=== PATIENT | female | born 1950 | race Caucasian/White ===

== ENCOUNTER 2017-01-02 01:24 | Inpatient (IN) | payer MEDICARE, OTHER ==
[2017-01-01 22:30] VITALS: BP_SYST 123; BP_SYST 124; BP_DIAS 70; BP_DIAS 77
[~2017-01-02] VITALS: Ht 175.3 cm; Wt 72.6 kg
--- NOTE | 2017-01-02 01:40 | NUR ---
ADMITTED A 66-YEAR OLD FEMALE FROM [facility] TRANSPORTED VIA GURNEY BY AMBULANCE. PATIENT IS ALERT, ORIENTED X2. PATIENT ADMITTED ON A 5150 HOLD FOR A DANGER TO SELF. PER HOLD PATIENT CALL FROM CLIENT REPORTING SHE HAD CUT HERSELF IN THE CHEST. "I WAS TRYING TO CUT MY HEART" WENT TO SEE CLIENT AT HER HOME. POLICE WAS AT HOME WITH HER. SHE SHOWED THEM A CUT ON HER CHEST. REPORTED PATIENT TAKING 4 NAPROXYN AND 4 TRAZADONE. SHE STATES "I WAS TAKING SUICIDE SERIOUSLY AND I WAS THINKING OF GETTING A GUN." PATIENT HAS ADMITTING DIAGNOSIS OF PSYCHOSIS, DEPRESSION, H/O SUICIDE ATTEMPT AND BIPOLAR DISORDER. PATIENT DENIES SI/HI AT THIS TIME. NO C/O PAIN OR DISCOMFORT NOTED. SKIN AND BODY ASSESSMENT DONE. NO APPARENT DISTRESS NOTED. PATIENT IS UNDER THE CARE OF DR. MOMIN/JAEL. PATIENT ORIENTED TO ROOM, FLOOR AND STAFF. ALL INVENTORIES AND CHECKED FOR CONTRABAND. PATIENT EDUCATED ON THE USE OF CALL SOTELO. WILL IMPLEMENT SAFETY PRECAUTION ALL THE TIME. WILL CONTINUE TO MONITOR PATIENT Q15 MINS FOR SAFETY.
[2017-01-02 01:45] VITALS: BP 123/77
--- NOTE | 2017-01-02 01:45 | NUR ---
CALLED DR. ELDER REGARDING MEDICATION RECONCILIATION ORDERS AWAITING CALL BACK.
[2017-01-02] MEDS ORDERED: MAGNESIUM HYDROXIDE 30 ML UDC PO PRN (02:00)
[2017-01-02] MEDS ORDERED: MAG HYDROX/AL HYDROX/SIMETH 30 ML UDC PO PRN (02:00)
[2017-01-02 04:15] VITALS: BP 123/77
--- NOTE | 2017-01-02 04:30 | NUR ---
FOLLOWED UP CALL MADE TO DR. ELDER AWAITING RESPONSE FROM
[2017-01-02] MEDS ORDERED: BUSP5TAB3 PO (05:58)
[2017-01-02] MEDS ORDERED: RISP3TAB14 PO (05:58)
[2017-01-02] MEDS ORDERED: POTA99TA14 PO (05:58)
[2017-01-02] MEDS ORDERED: LEVO75TA7 PO (05:58)
[2017-01-02] MEDS ORDERED: OMEP20CA10 PO (05:58)
[2017-01-02] MEDS ORDERED: SENN8.6T6 PO (05:58)
--- NOTE | 2017-01-02 06:18 | NUR ---
DR. ELDER CALLED BACK AND INSTRUCTED THAT MORNING DOCTOR WILL DO THE MEDICATION RECONCILIATION ORDERS. WILL ENDORSED TO THE NEXT SHIFT ACCORDINGLY.
[2017-01-02 08:09] VITALS: BP 120/66
[2017-01-02] MEDS: LEVOTHYROXINE SODIUM 75 MCG TABLET PO SCH (10:04)
[2017-01-02] MEDS: PANTOPRAZOLE 40 MG TABLET.DR PO SCH (10:04)
--- NOTE | 2017-01-02 11:54 | NUR ---
Initial Discharge Note Patient states that she lives alone in a condo at [address] [place] [address] and wishes to return upon her discharge from the hospital. Patient expressed no interest in alternative placement. SW attempted to contact pt's mother, Farzaneh [phone], and left a voicemail with detailed contact information. SW will help in forming a safe and proper discharge.
[2017-01-02 16:19] VITALS: BP 110/62
[2017-01-02] MEDS: ESCITALOPRAM OXALATE (10 MG) 10 MG TABLET PO SCH (16:52)
[2017-01-02 20:00] VITALS: BP 144/59
[2017-01-02] MEDS: TEMAZEPAM 7.5 MG CAPSULE PO PRN (21:47)
[2017-01-02] MEDS: ARIPIPRAZOLE 2 MG TABLET PO SCH (21:47)
--- NOTE | 2017-01-02 21:47 | NUR ---
GPS RN NOTES PT C/O INABILITY TO SLEEP, REQUESTING FOR SLEEPING PILL , RESTORIL GIVEN ORDERED. BP : 144/59, HR : 60, 02 SAT : 96 %. WILL CONT TO MONITOR.
[2017-01-03 07:40] LABS: BASOPHILS % (AUTO) 0.4 % (0.0-2.0); EOSINOPHILS # (AUTO) 0.2 /CMM (0.0-0.7); EOSINOPHILS % (AUTO) 4.6 % (0.0-6.0); HEMATOCRIT 39 % (33-45); HEMOGLOBIN 12.9 g/dL (11.5-14.8); LYMPHOCYTES # (AUTO) 1.8 /CMM (0.8-4.8); LYMPHOCYTES % (AUTO) 41.3 % (20.0-44.0); MEAN CORPUSCULAR HEMOGLOBIN 32 PG (26.0-33.0); MEAN CORPUSCULAR HGB CONC 34 g/dl (31.0-36.0); MEAN CORPUSCULAR VOLUME 95 fL (82-100); MONOCYTES # (AUTO) 0.2 /CMM (0.1-1.30); MONOCYTES % (AUTO) 4.9 % (2.0-12.0); NEUTROPHILS # (AUTO) 2.1 /CMM (1.8-8.9); NEUTROPHILS % (AUTO) 48.8 % (43.0-81.0); PLATELET COUNT (AUTO) 87 /CMM (150-450); RDW COEFFICIENT OF VARIATION 14.9 (11.5-15.0); RED BLOOD CELL COUNT(AUTO) 4.05 MIL/uL (4.0-5.2); WHITE BLOOD COUNT (AUTO) 4.3 K/uL (4.3-11.0)
[2017-01-03 08:00] VITALS: BP 127/54
[2017-01-03 08:00] LABS: BILIRUBIN,TOTAL 0.7 mg/dL (0.2-1.0); CALCIUM, SERUM 8.8 mg/dL (8.5-10.1); CREATININE 0.8 mg/dL (0.6-1.3); POTASSIUM 4.1 mmol/L (3.5-5.1); TOTAL PROTEIN, SERUM 6.1 g/dL (6.4-8.2)
[2017-01-03 08:08] LABS: THYROID STIMULATING HORMONE 1.082 uIU/mL (0.358-3.74)
[2017-01-03] MEDS: ESCITALOPRAM OXALATE (10 MG) 10 MG TABLET PO SCH (09:35)
[2017-01-03] MEDS: LEVOTHYROXINE SODIUM 75 MCG TABLET PO SCH (09:36)
[2017-01-03] MEDS: SENNOSIDES 8.6 MG TABLET PO SCH (09:36)
[2017-01-03] MEDS: PANTOPRAZOLE 40 MG TABLET.DR PO SCH (09:36)
[2017-01-03 09:53] LABS: EOSINOPHILS % (MANUAL) 2 % (0-4); LYMPHOCYTES % (MANUAL) 37 % (16-48); MONOCYTES % (MANUAL) 3 % (0-11.0); NEUTROPHILS % (MANUAL) 58 (42-76)
--- NOTE | 2017-01-03 11:22 | NUR ---
PT. GIVEN KLONOPIN FOR ANXIETY.
[2017-01-03] MEDS: clonazePAM 0.5 MG TABLET PO PRN (11:23)
[2017-01-03 16:00] VITALS: BP 130/91
--- NOTE | 2017-01-03 18:06 | NUR ---
NO CHANGE IN STATUS.
[2017-01-03 20:00] VITALS: BP 140/93
[2017-01-03] MEDS: TEMAZEPAM 7.5 MG CAPSULE PO PRN (21:24)
[2017-01-03] MEDS: ARIPIPRAZOLE 2 MG TABLET PO SCH (21:24)
[2017-01-03 22:00] VITALS: BP 128/76
--- NOTE | 2017-01-04 06:42 | NUR ---
RN GPS NOTES DENIES SI HI , NO ACUTE DISTRESS NOTED, NO SIGNIFICANT CHANGES OF STATUS ,WILL ENDORSE TO NEXT SHIFT FOR CONTINUITY OF CARE .
--- NOTE | 2017-01-04 07:30 | NUR ---
RN NOTES PT IN BED, NOT IN ANY DISTRESS, APPEARS CALM. WILL CONT TO MONITOR.
[2017-01-04 08:25] VITALS: BP 155/78
[2017-01-04] MEDS: SENNOSIDES 8.6 MG TABLET PO SCH (09:10)
[2017-01-04] MEDS: ESCITALOPRAM OXALATE (10 MG) 10 MG TABLET PO SCH (09:10)
[2017-01-04] MEDS: LEVOTHYROXINE SODIUM 75 MCG TABLET PO SCH (09:10)
[2017-01-04] MEDS: PANTOPRAZOLE 40 MG TABLET.DR PO SCH (09:10)
[2017-01-04 15:33] VITALS: BP 140/76
[2017-01-04 16:00] VITALS: BP 140/76
[2017-01-04] MEDS: clonazePAM 0.5 MG TABLET PO PRN (20:32)
[2017-01-04 20:47] VITALS: BP 142/71
[2017-01-04] MEDS: ARIPIPRAZOLE 2 MG TABLET PO SCH (21:32)
[2017-01-04] MEDS: TEMAZEPAM 7.5 MG CAPSULE PO PRN (21:32)
[2017-01-05 08:00] VITALS: BP 139/83
[2017-01-05] MEDS: LEVOTHYROXINE SODIUM 75 MCG TABLET PO SCH (11:41)
[2017-01-05] MEDS: SENNOSIDES 8.6 MG TABLET PO SCH (11:41)
[2017-01-05] MEDS: ESCITALOPRAM OXALATE (10 MG) 10 MG TABLET PO SCH (11:41)
[2017-01-05] MEDS: PANTOPRAZOLE 40 MG TABLET.DR PO SCH (11:42)
--- NOTE | 2017-01-05 16:22 | NUR ---
very needy and hyper verbal no s.i. voiced to this staff continue monitoring for safety.
[2017-01-05 16:25] VITALS: BP 131/77
[2017-01-05 20:00] VITALS: BP 168/87
[2017-01-05 20:20] VITALS: BP 168/87
[2017-01-05] MEDS: clonazePAM 0.5 MG TABLET PO PRN (20:50)
--- NOTE | 2017-01-05 20:50 | NUR ---
RN NOTES: PATIENT STATED THAT SHE FEELS ANXIOUS AND KEPT ASKING ABOUT HER MEDICAITONS, SAYNG THAT SHE WANTS HER KLONOPIN, AND THEN A RESTORIL AFTERWARDS. EXPLAINED SCHEDULE OF MEDICATIONS. BP ELEVATED AT 168/87. ADMINISTERED KLONOPIN 0.5 MG PO. WILL CONT TO MONITOR.
[2017-01-05] MEDS: ARIPIPRAZOLE 2 MG TABLET PO SCH (21:45)
[2017-01-05] MEDS: TEMAZEPAM 7.5 MG CAPSULE PO PRN (21:48)
--- NOTE | 2017-01-05 21:50 | NUR ---
RN NOTES: ADMINISTERED RESTORIL 7.5 MG PO FOR SLEEPLESSNESS.
[2017-01-05 22:30] VITALS: BP 135/78
--- NOTE | 2017-01-05 22:30 | NUR ---
RN NOTES: BP DECREASED TO 135/78, HR: 58.
[2017-01-06] MEDS: ACETAMINOPHEN 325 MG TABLET PO PRN (03:56)
--- NOTE | 2017-01-06 04:04 | NUR ---
RN NOTES: TYLENOL 650 MG PO GIVEN FOR SHOULDER AND NECK PAIN. PER PATIENT, "SARKIS CADET" USED HIS SUPERNATURAL MINA TO CAUSE HER THIS PAIN. WHEN ASKED WHO SARKIS CADET IS, SHE SAID THAT HE IS THE ONE WHO CAN MAKE HER INVISIBLE. REORIENTED PATIENT. WILL CONT TO MONITOR.
[2017-01-06] MEDS: clonazePAM 0.5 MG TABLET PO PRN ×2 (04:36→19:49)
--- NOTE | 2017-01-06 04:37 | NUR ---
RN NOTES: ADMINISTERED KLONOPIN 0.5 MG PO FOR ANXIETY. PATIENT ALSO REQUESTED FOR ANOTHER BP CHECK: 132/73.V
[2017-01-06 08:00] VITALS: BP 128/76
[2017-01-06] MEDS: LEVOTHYROXINE SODIUM 75 MCG TABLET PO SCH (08:19)
[2017-01-06] MEDS: ESCITALOPRAM OXALATE (10 MG) 10 MG TABLET PO SCH (08:19)
[2017-01-06] MEDS: SENNOSIDES 8.6 MG TABLET PO SCH (08:19)
[2017-01-06] MEDS: PANTOPRAZOLE 40 MG TABLET.DR PO SCH (08:19)
[2017-01-06 15:44] VITALS: BP 126/83
[2017-01-06 20:04] VITALS: BP 143/82
[2017-01-06] MEDS: TEMAZEPAM 7.5 MG CAPSULE PO PRN (20:51)
[2017-01-06] MEDS: ARIPIPRAZOLE 2 MG TABLET PO SCH (21:12)
[2017-01-07] MEDS: clonazePAM 0.5 MG TABLET PO PRN ×2 (05:04→20:20)
[2017-01-07] MEDS: LEVOTHYROXINE SODIUM 75 MCG TABLET PO SCH (07:30)
[2017-01-07] MEDS: PANTOPRAZOLE 40 MG TABLET.DR PO SCH (07:30)
[2017-01-07 08:05] VITALS: BP 129/76
[2017-01-07] MEDS: SENNOSIDES 8.6 MG TABLET PO SCH (09:44)
[2017-01-07] MEDS: ESCITALOPRAM OXALATE (10 MG) 10 MG TABLET PO SCH (09:44)
[2017-01-07 16:13] VITALS: BP 135/83
[2017-01-07 20:05] VITALS: BP 139/91
[2017-01-07] MEDS: TEMAZEPAM 7.5 MG CAPSULE PO PRN (22:29)
[2017-01-07] MEDS: ARIPIPRAZOLE 2 MG TABLET PO SCH (22:30)
--- NOTE | 2017-01-08 05:51 | NUR ---
PATIENT IN ROOM ALL EVENING ISOLATIVE TO SELF , DENIES SI , COOPERATIVE WITH MEDS , KLONOPIN 0.5MG FOR ANXIET X1 AND C/O INSOMNIA RESTORIL 7.5 MG ADMINISTRATED CONT TO MONITOR.
[2017-01-08 07:41] VITALS: BP 140/88
[2017-01-08] MEDS: LEVOTHYROXINE SODIUM 75 MCG TABLET PO SCH (08:42)
[2017-01-08] MEDS: SENNOSIDES 8.6 MG TABLET PO SCH (08:42)
[2017-01-08] MEDS: PANTOPRAZOLE 40 MG TABLET.DR PO SCH (08:42)
[2017-01-08] MEDS: ESCITALOPRAM OXALATE (10 MG) 10 MG TABLET PO SCH (08:42)
[2017-01-08] MEDS: clonazePAM 0.5 MG TABLET PO PRN ×2 (08:43→18:55)
[2017-01-08 15:36] VITALS: BP 137/69
[2017-01-08 20:00] VITALS: BP 140/67
[2017-01-08] MEDS: ARIPIPRAZOLE 2 MG TABLET PO SCH (22:06)
[2017-01-08] MEDS: TEMAZEPAM 7.5 MG CAPSULE PO PRN (22:06)
[2017-01-09] MEDS: clonazePAM 0.5 MG TABLET PO PRN ×2 (03:01→16:24)
[2017-01-09 07:20] LABS: BASOPHILS % (AUTO) 0.9 % (0.0-2.0); EOSINOPHILS # (AUTO) 0.2 /CMM (0.0-0.7); EOSINOPHILS % (AUTO) 4.1 % (0.0-6.0); HEMATOCRIT 39 % (33-45); HEMOGLOBIN 13.4 g/dL (11.5-14.8); LYMPHOCYTES # (AUTO) 2.2 /CMM (0.8-4.8); LYMPHOCYTES % (AUTO) 58.5 % (20.0-44.0); MEAN CORPUSCULAR HEMOGLOBIN 32 PG (26.0-33.0); MEAN CORPUSCULAR HGB CONC 34 g/dl (31.0-36.0); MEAN CORPUSCULAR VOLUME 95 fL (82-100); MONOCYTES # (AUTO) 0.3 /CMM (0.1-1.30); MONOCYTES % (AUTO) 8.2 % (2.0-12.0); NEUTROPHILS % (AUTO) 28.3 % (43.0-81.0); PLATELET COUNT (AUTO) 92 /CMM (150-450); RDW COEFFICIENT OF VARIATION 14.6 (11.5-15.0); RED BLOOD CELL COUNT(AUTO) 4.16 MIL/uL (4.0-5.2); WHITE BLOOD COUNT (AUTO) 3.7 K/uL (4.3-11.0)
[2017-01-09 07:28] LABS: CALCIUM, SERUM 8.7 mg/dL (8.5-10.1); CREATININE 0.9 mg/dL (0.6-1.3); POTASSIUM 3.7 mmol/L (3.5-5.1)
[2017-01-09] MEDS: ESCITALOPRAM OXALATE (10 MG) 10 MG TABLET PO SCH (07:55)
[2017-01-09] MEDS: PANTOPRAZOLE 40 MG TABLET.DR PO SCH (07:55)
[2017-01-09] MEDS: SENNOSIDES 8.6 MG TABLET PO SCH (07:55)
[2017-01-09] MEDS: LEVOTHYROXINE SODIUM 75 MCG TABLET PO SCH (07:56)
[2017-01-09 08:35] VITALS: BP 135/75
[2017-01-09 08:49] LABS: BAND % (MANUAL) 1 % (0.0-5.0); EOSINOPHILS % (MANUAL) 4 % (0-4); LYMPHOCYTES % (MANUAL) 58 % (16-48); MONOCYTES % (MANUAL) 9 % (0-11.0); NEUTROPHILS % (MANUAL) 28 (42-76)
[2017-01-09] MEDS: ACETAMINOPHEN 325 MG TABLET PO PRN (11:18)
--- NOTE | 2017-01-09 15:09 | NUR ---
TIMOTEO left a message for [facility] Team at [phone] informing them of discharge and asking to arrange after-care/follow up appointments.
--- NOTE | 2017-01-09 15:34 | NUR ---
After care note: TIMOTEO called the [facility] Team at [phone] and spoke with Marilia. Marilia stated that the person who has access to the follow-up appointments is not in the office today. Marilia asked TIMOTEO to call back on Thursday morning and ask for Ethel. TIMOTEO will follow up Friday 01/12.
[2017-01-09 16:02] VITALS: BP 122/75
[2017-01-09 20:00] VITALS: BP 132/79
[2017-01-09] MEDS: TEMAZEPAM 7.5 MG CAPSULE PO PRN (21:51)
[2017-01-09] MEDS: ARIPIPRAZOLE 2 MG TABLET PO SCH (21:51)
[2017-01-10] MEDS: clonazePAM 0.5 MG TABLET PO PRN (06:39)
[2017-01-10 07:46] VITALS: BP 130/76
[2017-01-10] MEDS: LEVOTHYROXINE SODIUM 75 MCG TABLET PO SCH (08:26)
[2017-01-10] MEDS: PANTOPRAZOLE 40 MG TABLET.DR PO SCH (08:26)
[2017-01-10] MEDS: SENNOSIDES 8.6 MG TABLET PO SCH (08:26)
[2017-01-10] MEDS: ESCITALOPRAM OXALATE (10 MG) 10 MG TABLET PO SCH (08:26)
[2017-01-10 16:00] VITALS: BP 141/77
[2017-01-10 20:00] VITALS: BP 137/77
[2017-01-10] MEDS: ARIPIPRAZOLE 2 MG TABLET PO SCH (21:05)
[2017-01-10] MEDS: TEMAZEPAM 7.5 MG CAPSULE PO PRN (21:07)
[2017-01-11] MEDS: ACETAMINOPHEN 325 MG TABLET PO PRN ×2 (02:02→17:00)
--- NOTE | 2017-01-11 02:05 | NUR ---
RN NOTES PT. ASKED FOT TYLENOL FOR HEADACHE-TYLENOL 650MG PO GIVEN ORDERED
[2017-01-11] MEDS: clonazePAM 0.5 MG TABLET PO PRN (05:50)
[2017-01-11] MEDS: PANTOPRAZOLE 40 MG TABLET.DR PO SCH (08:07)
[2017-01-11] MEDS: ESCITALOPRAM OXALATE (10 MG) 10 MG TABLET PO SCH (08:07)
[2017-01-11] MEDS: LEVOTHYROXINE SODIUM 75 MCG TABLET PO SCH (08:07)
[2017-01-11] MEDS: SENNOSIDES 8.6 MG TABLET PO SCH (08:08)
[2017-01-11 08:17] VITALS: BP 140/80
[2017-01-11 16:00] VITALS: BP 157/85
--- NOTE | 2017-01-11 17:00 | NUR ---
[id number]: GAVE TYLENOL 650 MG PO DUE TO HEADACHE 10/02 UPON PT REQUEST AND WILL CONTINUE TO MONITOR FOR EFFECTIVENESS OF MEDICATION.
[2017-01-11 19:43] VITALS: BP 134/57
[2017-01-11] MEDS: ARIPIPRAZOLE 2 MG TABLET PO SCH (21:32)
[2017-01-11] MEDS: TEMAZEPAM 7.5 MG CAPSULE PO PRN (21:35)
[2017-01-12 06:57] VITALS: BP 132/67
[2017-01-12 08:18] VITALS: BP 156/85
[2017-01-12] MEDS: ESCITALOPRAM OXALATE (10 MG) 10 MG TABLET PO SCH (08:48)
[2017-01-12] MEDS: PANTOPRAZOLE 40 MG TABLET.DR PO SCH (08:48)
[2017-01-12] MEDS: SENNOSIDES 8.6 MG TABLET PO SCH (08:48)
[2017-01-12] MEDS: LEVOTHYROXINE SODIUM 75 MCG TABLET PO SCH (08:48)
[2017-01-12] MEDS ORDERED: DOCUSATE SODIUM 100 MG CAPSULE PO SCH (09:00)
--- NOTE | 2017-01-12 10:25 | NUR ---
Discharge Note: Patient will be discharge home to [address] [place] [phone] via transportation arranged by social insurance administrator through [employer] [[phone]]. Patients mother, Farzaneh [phone] is aware of the discharge. Patient states that she feels good about going home. Upon discharge, patient is alert and oriented x4. Patient denies visual and auditory hallucinations. Patient denies homicidal thoughts. Patient denies suicidal ideation and the intent to harm herself. Patient will be seen by her varnish maker, Dr. Juan A Shell [address] [place] [address] / [phone]. However, patient stated that she absolutely does not want social insurance administrator to contact the medical doctor. Patient stated that she feel more comfortable doing so herself. Patient stated that social insurance administrator can follow up on the psychiatric side. youth support worker provided patient with contact info for Dr. Shell. Patients psychiatrist is Dr. Lubin [address] [place], [place] [phone]. youth support worker called the [place] [facility] team at [phone] who set up an appointment with Mara Adan NP at [address] [facility] room [address] [place], on January 22, 2017 at 9:30 am.
--- NOTE | 2017-01-12 12:15 | NUR ---
[id number]-EX-VICFD: PT IS 66 YEARS OLD FEMALE DISCHARGE TO HOME [address] [facility] [place]. [address] IN STABLE CONDITION. COMPLAINT WITH MEDICATIONS, COOPERATIVE WITH TREATMENT PLANS. PT DENIES SI/HI AND INSTRUCTED TO GO TO THE CLOSEST ER IF DEVELOPING SI/HI. BEHAVIOR IMPROVED, PSYCHIATRIC TX PLANS MET, MEDICAL TX PLANS DEFERRED FOR CONTINUAL MONITORING. EDUCATED PT ABOUT AFTER CARE PLAN AND COPY PROVIDED. RETURN PERSONAL BELONGINGS TO PT. MEDICATIONS RECONCILED WITH DR. MOMIN AND RADIO MECHANIC HELPER LORE HOOD. PT SIGNED ALL DISCHARGE PAPERWORK. SKIN ASSESSMENT DONE. FAXED TO [employer] [phone]. PT PICKED BY URBAN ANTHROPOLOGIST NAMED [employer] FROM [employer].
--- NOTE | 2017-01-12 14:13 | NUR ---
TIMOTEO faxed over a referral for home health services to [facility] [address] [facility] / fax number [phone]
--- NOTE | 2017-01-13 12:17 | NUR ---
Home Health: TIMOTEO heard back from [facility] [address] [facility] / fax number [phone] who stated that they were unable to accommodate patient. TIMOTEO faxed over [facility] [phone] / fax [phone] *please note same fax + telephone number provided*
--- NOTE | 2017-01-13 15:05 | NUR ---
Home Health: TIMOTEO heard back from Roslyn from [facility] [phone] / fax [phone] who informed TIMOTEO that they will be accepting patient and will be contacting her within 48 hours.
== END 2017-01-12 12:15 | disposition home health service (06) | DRG 885 ==
LOC: GPS 01:24
PROVIDERS: ADMIT Psychiatry & Neurology Psychiatry; ATTEND Nurse Practitioner Acute Care
DX: F25.1 Schizoaffective disorder, depressive type (principal); D69.6 Thrombocytopenia, unspecified; F23 Brief psychotic disorder; E03.9 Hypothyroidism, unspecified; F41.9 Anxiety disorder, unspecified; I10 Essential (primary) hypertension; K21.9 Gastro-esophageal reflux disease without esophagitis; K59.09 Other constipation; Z73.6 Limitation of activities due to disability
CPT/HCPCS: 36415; 80048-TC; 80053-TC; 80061-TC; 82040-TC; 84443-TC; 85025-TC; 87081-TC

== ENCOUNTER 2017-09-11 13:29 | Inpatient (IN) | payer MEDICARE, OTHER ==
[~2017-09-11] VITALS: Ht 175.3 cm; Wt 66.7 kg
[~2017-09-11 13:29] MED LIST: LEVO75TA7 PO; OMEP20CA10 PO; POTA99TA14 PO; SENN-167 PO
[2017-09-11] MEDS ORDERED: RISP0.253 PO (13:57)
[2017-09-11] MEDS ORDERED: BUSP10TA35 PO (13:57)
[2017-09-11] MEDS ORDERED: ACETAMINOPHEN 325 MG TABLET PO PRN (14:00)
[2017-09-11] MEDS ORDERED: MAG HYDROX/AL HYDROX/SIMETH 30 ML UDC PO PRN (14:00)
[2017-09-11] MEDS ORDERED: MAGNESIUM HYDROXIDE 30 ML UDC PO PRN (14:00)
--- NOTE | 2017-09-11 14:54 | NUR ---
Admitted a 67 years old female on 5149 for DTS. Pt. reported she wanted to buy a gun or have someone shoot he. Pt. had numerous suicide ideations events in last weeks. Recently her mother . She moved from a [facility] and has much less support. Pt. came from [facility], arrived in the unit via ambulance and transported via a gurney. Upon face to face assessment, pt. denies being suicidal and homicidal and claimed that she is depressed. Pt. is cooperative on the admission process, v/s taken, pt. signed the admitting papers, skin assessment done and pictures taken for the skin issues. Dr. Lincoln was notified by the charge nurse and Nghia Beltre notified about the admission and reminded to reconcile meds. Addendum: 09/11/17 at 1528 by JESSIE MATHEWS RN Kell Esteban the cousin contacted and notified about the admission.
[2017-09-11 16:22] VITALS: BP 146/88
[2017-09-11 19:49] LABS: APPEARANCE,URINE CLEAR (CLEAR); BILIRUBIN,URINE NEGATIVE (NEGATIVE); BLOOD, URINE NEGATIVE Ery/uL (NEGATIVE); COLOR,URINE YELLOW (YELLOW); KETONES,URINE NEGATIVE (NEGATIVE); LEUKOCYTE ESTERASE ,URINE NEGATIVE (NEGATIVE); NITRITE, URINE NEGATIVE (NEGATIVE); PH,URINE 6.5 (5.0-8.0); PROTEIN,URINE NEGATIVE (NEGATIVE); UGLUCOSE NEGATIVE (NEGATIVE); UROBILINOGEN,URINE 0.2 EU/dL (0.2)
[2017-09-11 20:00] VITALS: BP 145/75
--- NOTE | 2017-09-11 20:57 | NUR ---
PLACED A CALL TO DR. ARGELIA SANCHEZ REGARDING MED RECON, PER DR. STOUT HE'LL REVIEW IT.
--- NOTE | 2017-09-11 21:10 | NUR ---
PT WAS SEEN BY DR. STOUT
[2017-09-11] MEDS: TEMAZEPAM 7.5 MG CAPSULE PO PRN (23:20)
[2017-09-12 06:59] LABS: BASOPHILS % (AUTO) 0.6 % (0.0-2.0); EOSINOPHILS % (AUTO) 3.6 % (0.0-6.0); HEMATOCRIT 38 % (33-45); HEMOGLOBIN 12.8 g/dL (11.5-14.8); LYMPHOCYTES # (AUTO) 1.7 /CMM (0.8-4.8); LYMPHOCYTES % (AUTO) 50.5 % (20.0-44.0); MEAN CORPUSCULAR HEMOGLOBIN 34 PG (26.0-33.0); MEAN CORPUSCULAR HGB CONC 34 g/dl (31.0-36.0); MEAN CORPUSCULAR VOLUME 99 fL (82-100); MONOCYTES # (AUTO) 0.2 /CMM (0.1-1.30); MONOCYTES % (AUTO) 6.8 % (2.0-12.0); NEUTROPHILS # (AUTO) 1.3 /CMM (1.8-8.9); NEUTROPHILS % (AUTO) 38.5 % (43.0-81.0); PLATELET COUNT (AUTO) 84 /CMM (150-450); RDW COEFFICIENT OF VARIATION 14.5 (11.5-15.0); RED BLOOD CELL COUNT(AUTO) 3.79 MIL/uL (4.0-5.2); WHITE BLOOD COUNT (AUTO) 3.4 K/uL (4.3-11.0)
[2017-09-12 08:00] VITALS: BP 129/78
[2017-09-12] MEDS: SENNOSIDES 8.6 MG TABLET PO SCH (09:08)
[2017-09-12] MEDS: LEVOTHYROXINE SODIUM 75 MCG TABLET PO SCH (09:08)
[2017-09-12 09:20] LABS: BILIRUBIN,TOTAL 0.7 mg/dL (0.2-1.0); CALCIUM, SERUM 8.4 mg/dL (8.5-10.1); MAGNESIUM 1.7 mg/dL (1.8-2.4); PHOSPHORUS 3.3 mg/dL (2.5-4.9); POTASSIUM 3.5 mmol/L (3.5-5.1); TOTAL PROTEIN, SERUM 6.4 g/dL (6.4-8.2)
[2017-09-12 09:45] LABS: THYROID STIMULATING HORMONE 2.872 uIU/mL (0.358-3.74)
[2017-09-12 12:46] LABS: BAND % (MANUAL) 1 % (0.0-5.0); EOSINOPHILS % (MANUAL) 7 % (0-4); LYMPHOCYTES % (MANUAL) 49 % (16-48); MONOCYTES % (MANUAL) 2 % (0-11.0); NEUTROPHILS % (MANUAL) 41 (42-76)
[2017-09-12 16:00] VITALS: BP 152/86
[2017-09-12] MEDS: LORAZEPAM 0.5 MG TABLET PO PRN ×2 (16:44→20:48)
[2017-09-12 20:00] VITALS: BP 139/96
[2017-09-12] MEDS ORDERED: HALOPERIDOL 5 MG TABLET ONE (20:32)
[2017-09-12] MEDS ORDERED: FLUVOXAMINE MALEATE 50 MG TABLET ONE (20:33)
[2017-09-12] MEDS: BENZTROPINE MESYLATE (1 MG) 1 MG TABLET PO SCH (20:48)
[2017-09-12] MEDS: TEMAZEPAM 7.5 MG CAPSULE PO PRN (21:59)
[2017-09-13] MEDS: LORAZEPAM 0.5 MG TABLET PO PRN (04:41)
[2017-09-13 08:00] VITALS: BP 112/76
[2017-09-13] MEDS: BENZTROPINE MESYLATE (1 MG) 1 MG TABLET PO SCH ×3 (09:10→17:42)
[2017-09-13] MEDS: SENNOSIDES 8.6 MG TABLET PO SCH (09:10)
[2017-09-13] MEDS: LEVOTHYROXINE SODIUM 75 MCG TABLET PO SCH (09:10)
[2017-09-13] MEDS: HALOPERIDOL 5 MG TABLET PO SCH ×3 (09:11→17:43)
[2017-09-13] MEDS: FLUVOXAMINE MALEATE 50 MG TABLET PO SCH ×3 (09:11→17:43)
--- NOTE | 2017-09-13 09:13 | NUR ---
GPS/RN PT IS EATING BREAKFAST WELL, NO S/S HYPOGLYCEMIA NOTED. REFUSED ACCUCHECK AT THIS TIME. OFFERED X3. Addendum: 09/13/17 at 0917 by CRISTIANO YOUNG RN DISREGARD THIS NOTE. IT IS FOR DIFFERENT PATIENT
[2017-09-13 15:54] VITALS: BP 127/74
[2017-09-13 20:18] VITALS: BP 143/83
[2017-09-13] MEDS: TEMAZEPAM 7.5 MG CAPSULE PO PRN (21:17)
--- NOTE | 2017-09-13 21:17 | NUR ---
TEMAZEPAM 15 MG CAP PO GIVEN FOR SLEEP, PER PATIENT'S REQUEST
[2017-09-14 08:00] VITALS: BP 154/81
[2017-09-14] MEDS: FLUVOXAMINE MALEATE 50 MG TABLET PO SCH ×3 (08:19→16:05)
[2017-09-14] MEDS: BENZTROPINE MESYLATE (1 MG) 1 MG TABLET PO SCH ×3 (08:19→16:05)
[2017-09-14] MEDS: LEVOTHYROXINE SODIUM 75 MCG TABLET PO SCH (08:19)
[2017-09-14] MEDS: HALOPERIDOL 5 MG TABLET PO SCH ×3 (08:19→16:05)
[2017-09-14] MEDS: SENNOSIDES 8.6 MG TABLET PO SCH (08:19)
--- NOTE | 2017-09-14 11:22 | NUR ---
Initial Discharge Plan: Pt currently resides at [address] [place] [address]; ([phone]). Per pt, she would like to return here. TIMOTEO will work with the pt and the MD regarding appropriate discharge plans. SW will form a safe and proper discharge plan.
--- NOTE | 2017-09-14 12:16 | NUR ---
Shreya ([phone]) from [facility] called the SW and stated that the pt has an appointment set for October 17 for an ultrasound and for hepatitis C treatment. Shreya also provided the SW with the pt's psychiatrist information who is Dr. Valle and can be reached at the same number.
--- NOTE | 2017-09-14 12:21 | NUR ---
Carole ([phone]), from [facility], called the SW and stated that she will provide the transportation for the pt when she is ready to be discharged.
[2017-09-14 16:00] VITALS: BP 148/80
--- NOTE | 2017-09-14 19:30 | NUR ---
GPS RN NOTE, RECEIVED PATIENT AWAKE AND IN BED, NO S/S OR COMPLAINTS OF PAIN AT THIS TIME. PATIENT IS DISPLAYING NO S/S OF APPARENT DISTRESS AT THIS TIME. PATIENT BREATHING IS UNLABORED WITH EQUAL RISE AND FALL CHEST. PATIENT IS ALERT AND ORIENTED X 3 ON ROOM AIR WITH A SPO2 98 %. PATIENT IS MED COMPLIANT, DISORGANIZED, COOPERATIVE, ANXIOUS, GUARDED, AND NEEDS REORIENTATION. PATIENT DENIES SUICIDE IDEATIONS AND HOMICIDAL IDEATIONS AT THIS TIME. PATIENT EDUCATED ON THE USE OF THE CALL SOTELO. PATIENT BED SIDE RAILS UP X 2 FOR SAFETY, BED IS LOCKED AND LOW, WILL CONTINUE TO MONITOR AND MAINTAIN SAFETY WITH THE HELP OF SAFE.
[2017-09-14 20:00] VITALS: BP 137/78
[2017-09-14] MEDS: LORAZEPAM 0.5 MG TABLET PO PRN (20:45)
--- NOTE | 2017-09-14 20:45 | NUR ---
GPS RN NOTE, PATIENT HAS A COMPLAINT OF FEELING ANXIOUS AND IS REQUESTING ATIVAN AT THIS TIME. PATIENT VITAL SIGNS ARE STABLE. GAVE ATIVAN 1MG PO Q4HR PRN ORDERED. WILL REASSESS FOR ANXIETY AND I WILL CONTINUE TO MONITOR THIS PATIENT.
[2017-09-15] MEDS: TEMAZEPAM 7.5 MG CAPSULE PO PRN (02:25)
--- NOTE | 2017-09-15 02:25 | NUR ---
GPS RN NOTE, PATIENT HAS A COMPLAINT OF NOT BEING ABLE TO SLEEP AND IS REQUESTING RESTORIL AT THIS TIME. PATIENT VITAL SIGNS ARE STABLE. GAVE RESTORIL 15MG PO HS ORDERED. WILL REASSESS FOR INSOMNIA AND I WILL CONTINUE TO MONITOR THIS PATIENT.
[2017-09-15 08:00] VITALS: BP 149/82
[2017-09-15] MEDS: LEVOTHYROXINE SODIUM 75 MCG TABLET PO SCH (08:33)
[2017-09-15] MEDS: SENNOSIDES 8.6 MG TABLET PO SCH (08:33)
[2017-09-15] MEDS: FLUVOXAMINE MALEATE 50 MG TABLET PO SCH ×3 (08:33→16:28)
[2017-09-15] MEDS: HALOPERIDOL 5 MG TABLET PO SCH ×3 (08:33→16:28)
[2017-09-15] MEDS: BENZTROPINE MESYLATE (1 MG) 1 MG TABLET PO SCH ×3 (08:33→16:28)
[2017-09-15] MEDS: LORAZEPAM 0.5 MG TABLET PO PRN ×2 (09:06→19:45)
--- NOTE | 2017-09-15 09:10 | NUR ---
GPS/RN PATIENT REPORTS BEING ANXIOUS AND DEPRESSED OVER OF MOTHER. ADMINISTERED ATIVAN 1 MG PER PATIENT REQUEST. WILL CONTINUE TO MONITOR.
[2017-09-15 16:00] VITALS: BP 140/71
--- NOTE | 2017-09-15 16:00 | NUR ---
SW spoke to Casie ([phone]) from [facility] and informed her about the pt's progress.
[2017-09-15 19:53] VITALS: BP 148/78
[2017-09-16 08:00] VITALS: BP 116/74
[2017-09-16] MEDS: FLUVOXAMINE MALEATE 50 MG TABLET PO SCH ×3 (08:12→16:57)
[2017-09-16] MEDS: BENZTROPINE MESYLATE (1 MG) 1 MG TABLET PO SCH ×3 (08:12→16:57)
[2017-09-16] MEDS: SENNOSIDES 8.6 MG TABLET PO SCH (08:12)
[2017-09-16] MEDS: HALOPERIDOL 5 MG TABLET PO SCH ×4 (08:12→21:04)
[2017-09-16] MEDS: LEVOTHYROXINE SODIUM 75 MCG TABLET PO SCH (08:12)
[2017-09-16 16:00] VITALS: BP 143/96
[2017-09-16] MEDS: LORAZEPAM 0.5 MG TABLET PO PRN (19:38)
[2017-09-16 19:55] VITALS: BP 151/93
[2017-09-16] MEDS: TEMAZEPAM 7.5 MG CAPSULE PO PRN (22:21)
[2017-09-17 08:15] VITALS: BP 125/60
[2017-09-17] MEDS: SENNOSIDES 8.6 MG TABLET PO SCH (08:16)
[2017-09-17] MEDS: FLUVOXAMINE MALEATE 50 MG TABLET PO SCH ×5 (08:16→21:17)
[2017-09-17] MEDS: LEVOTHYROXINE SODIUM 75 MCG TABLET PO SCH (08:16)
[2017-09-17] MEDS: BENZTROPINE MESYLATE (1 MG) 1 MG TABLET PO SCH ×3 (08:20→16:25)
[2017-09-17] MEDS: HALOPERIDOL 5 MG TABLET PO SCH ×3 (08:20→21:17)
[2017-09-17 16:00] VITALS: BP 140/70
--- NOTE | 2017-09-17 17:30 | NUR ---
GPS/RN LUVOX 25 MG FLAGGING PINK AT 1730, SPOKE WITH PHARMACY REGARDING PREVIOUS ADMINISTRATION OF LUVOX 25 MG AT 1625 AND WAS TOLD TO MAKE A NOTE REGARDING PREVIOUS ADMINISTRATION.
[2017-09-17 20:00] VITALS: BP 139/78
[2017-09-17] MEDS: LORAZEPAM 0.5 MG TABLET PO PRN (20:05)
[2017-09-17] MEDS: TEMAZEPAM 7.5 MG CAPSULE PO PRN (21:16)
[2017-09-18 08:00] VITALS: BP 119/69
[2017-09-18] MEDS: BENZTROPINE MESYLATE (1 MG) 1 MG TABLET PO SCH ×3 (09:05→16:57)
[2017-09-18] MEDS: HALOPERIDOL 5 MG TABLET PO SCH ×3 (09:05→22:14)
[2017-09-18] MEDS: FLUVOXAMINE MALEATE 50 MG TABLET PO SCH ×3 (09:05→22:14)
[2017-09-18] MEDS: SENNOSIDES 8.6 MG TABLET PO SCH (09:06)
[2017-09-18] MEDS: LEVOTHYROXINE SODIUM 75 MCG TABLET PO SCH (09:06)
[2017-09-18 16:00] VITALS: BP 147/75
[2017-09-18] MEDS: LORAZEPAM 0.5 MG TABLET PO PRN (19:05)
--- NOTE | 2017-09-18 19:05 | NUR ---
RN NOTES ADMINISTERED ATIVAN 1 MG PO PRN FOR ANXIETY PER PATIENT REQUEST, BP -147/ 75, P-69, CONTINUED MONITORING.
[2017-09-18 19:30] VITALS: BP 137/74
[2017-09-19 08:00] VITALS: BP 134/85
[2017-09-19] MEDS: SENNOSIDES 8.6 MG TABLET PO SCH (08:39)
[2017-09-19] MEDS: BENZTROPINE MESYLATE (1 MG) 1 MG TABLET PO SCH ×2 (08:39→13:02)
[2017-09-19] MEDS: FLUVOXAMINE MALEATE 50 MG TABLET PO SCH ×3 (08:39→21:02)
[2017-09-19] MEDS: LEVOTHYROXINE SODIUM 75 MCG TABLET PO SCH (08:40)
[2017-09-19] MEDS: HALOPERIDOL 5 MG TABLET PO SCH (08:40)
--- NOTE | 2017-09-19 15:31 | NUR ---
DR. RECINOS MADE AWARE FO EKG RESULT AND SAID TO NOTIFY MEDICAL DOCTOR.
--- NOTE | 2017-09-19 15:52 | NUR ---
DR. ORTEGA CALLED AND ORDER TO D/C CASANDRA.
[2017-09-19 16:06] VITALS: BP 119/54
--- NOTE | 2017-09-19 16:19 | NUR ---
DR. ORTEGA CALLED AND ORDERED TO /DC EMILY AND SHE SAID SHE NOTIFIED MCKAYLA FOR THE EKG RESULT.
[2017-09-19 19:30] VITALS: BP 121/75
[2017-09-19] MEDS: TEMAZEPAM 7.5 MG CAPSULE PO PRN (21:02)
[2017-09-19] MEDS ORDERED: HALOPERIDOL 5 MG TABLET PO SCH (22:00)
[2017-09-20 08:00] VITALS: BP 112/58
[2017-09-20 08:15] LABS: BASOPHILS % (AUTO) 0.8 % (0.0-2.0); EOSINOPHILS % (AUTO) 3.2 % (0.0-6.0); HEMATOCRIT 43 % (33-45); HEMOGLOBIN 14.4 g/dL (11.5-14.8); LYMPHOCYTES # (AUTO) 1.7 /CMM (0.8-4.8); LYMPHOCYTES % (AUTO) 45.9 % (20.0-44.0); MEAN CORPUSCULAR HEMOGLOBIN 34 PG (26.0-33.0); MEAN CORPUSCULAR HGB CONC 34 g/dl (31.0-36.0); MEAN CORPUSCULAR VOLUME 99 fL (82-100); MONOCYTES # (AUTO) 0.3 /CMM (0.1-1.30); MONOCYTES % (AUTO) 7.1 % (2.0-12.0); NEUTROPHILS # (AUTO) 1.6 /CMM (1.8-8.9); PLATELET COUNT (AUTO) 105 /CMM (150-450); RDW COEFFICIENT OF VARIATION 14.1 (11.5-15.0); RED BLOOD CELL COUNT(AUTO) 4.29 MIL/uL (4.0-5.2); WHITE BLOOD COUNT (AUTO) 3.6 K/uL (4.3-11.0)
[2017-09-20 08:17] LABS: APPEARANCE,URINE CLEAR (CLEAR); BILIRUBIN,URINE NEGATIVE (NEGATIVE); BLOOD, URINE NEGATIVE Ery/uL (NEGATIVE); COLOR,URINE DARK YELLO (YELLOW); KETONES,URINE NEGATIVE (NEGATIVE); LEUKOCYTE ESTERASE ,URINE NEGATIVE (NEGATIVE); NITRITE, URINE NEGATIVE (NEGATIVE); PH,URINE 6.5 (5.0-8.0); PROTEIN,URINE NEGATIVE (NEGATIVE); UGLUCOSE NEGATIVE (NEGATIVE)
[2017-09-20 08:26] LABS: BACTERIA,URINE Few /HPF (None Seen); MUCUS,URINE Few /LPF (None Seen); RBC,URINE 0-2 /HPF (0-2); URINE AMORPHOUS URATE Few /HPF (None Seen); WBC,URINE 0-2 /HPF (0-3)
[2017-09-20] MEDS: SENNOSIDES 8.6 MG TABLET PO SCH (08:26)
[2017-09-20] MEDS: FLUVOXAMINE MALEATE 50 MG TABLET PO SCH ×3 (08:26→21:10)
[2017-09-20] MEDS: LEVOTHYROXINE SODIUM 75 MCG TABLET PO SCH (08:27)
[2017-09-20 08:35] LABS: CALCIUM, SERUM 8.6 mg/dL (8.5-10.1); CARBON DIOXIDE 22 mmol/L (21-32); CHLORIDE 106 mmol/L (98-107); CREATININE 0.8 mg/dL (0.6-1.3); GLUCOSE 94 mg/dL (74-106); MAGNESIUM 1.9 mg/dL (1.8-2.4); PHOSPHORUS 3.5 mg/dL (2.5-4.9); POTASSIUM 3.7 mmol/L (3.5-5.1); SODIUM SERUM 141 mmol/L (136-145); UREA NITROGEN, BLOOD 10 mg/dL (7-18)
[2017-09-20 09:09] LABS: TROPONIN I < 0.017 ng/mL (0.00-0.056)
[2017-09-20] MEDS ORDERED: HALOPERIDOL 5 MG TABLET PO SCH ×2 (11:00→17:00)
[2017-09-20] MEDS ORDERED: BENZTROPINE MESYLATE (1 MG) 1 MG TABLET PO SCH ×2 (11:30→17:00)
[2017-09-20 15:59] VITALS: BP 139/85
[2017-09-20 19:38] VITALS: BP 116/45
[2017-09-20] MEDS: TEMAZEPAM 7.5 MG CAPSULE PO PRN (22:01)
[2017-09-20 23:36] VITALS: BP 118/65
[2017-09-21 02:30] VITALS: BP 109/62
--- NOTE | 2017-09-21 02:43 | NUR ---
RN GPS NOTES NOTIFIED MEDICARE COMPLIANCE AUDITOR HEATHER ISRAELRETE ABOUT EKG RESULT ATRIAL FIBRILLATION ,HEART RATE 84 NEW ORDER RECEIVED 12 LEAD EKG , TROPONIN 1 , NEW ORDER RECEIVED AND CARRIED OUT , PT. DENIES ANY PAIN OR DISCOMFORT AT THIS TIME ,PT. UP TO BATHROOM, WILL CONTINUY OF CARE .
--- NOTE | 2017-09-21 03:00 | NUR ---
RN GPS NOTES PT. STAT 12 LEAD EKG DONE AND STAT TROPONIN 1 LAB DONE AWITING FOR RESULTS , PT. DENIES ANY CHEST PAIN / SOB .
[2017-09-21 03:30] VITALS: BP 110/60
--- NOTE | 2017-09-21 03:46 | NUR ---
RN GPS NOTES CALL EXCHANGE LEFT MESSAGE FOR DR. HOOD REGREDING PT. STAT ORDERS , / STAT 12 LEAD EKG RESULT A-FIB , 80 BPM AND STAT TRPONIN RESULT < 0.017, DENIES ANY CHEST PAIN OR SHORT OF BREATH . WILL CONTINUITY OF CARE
--- NOTE | 2017-09-21 03:59 | NUR ---
RN GPS NOTES STILL AWAITING FOR CALL BACK FROM DR. VAN.
--- NOTE | 2017-09-21 04:13 | NUR ---
RN GPS NOTES RECEVIED CALL BACK FROM NEW ORDER IS TRANSFER PT.TO TELE, NEW ORDER RECEVIED AND CARRIED OUT.
--- NOTE | 2017-09-21 04:16 | NUR ---
RN GPS NOTES NOTIFIED LEGAL SECRETARY RECEPTIONIST PSYCHRIST DR. ORTEGA REGARDING 12 LEAD EKG RESULT, AND TRANSFERING ORDERS TO TELE , PER CASANDRA HAY , NEW ORDERS RECEIVED AND CARRIED OUT .
--- NOTE | 2017-09-21 04:28 | NUR ---
RN GPS NOTES NOTIFIED SUPEVISIOR REGARDING 12 LEAD EKG RESULT, AND DR. MIMS ORDERS TRANSFER PT. TO TELE, SUPERVISIOR FOR PT. TRANSFER TO ROOM # 308 , ORDERS RECEVIED AND CARRIED OUT.
--- NOTE | 2017-09-21 04:48 | NUR ---
RN GPS NOTES CALLED TELE REPORT GIVEN TO MIKEY ACUNA ROOM # 308 VITAL SIGNS STABLE SEE VITAL SIGNS SHEET , PT.TRANSFERING IN STABLE CONDTION , NO ACUTE DISTRESS NOTED DENIES ANY CHEST PAIN / SOB , WILL CONTINUITY OF CARE .
[2017-09-21 04:51] VITALS: BP 100/60
--- NOTE | 2017-09-21 05:08 | NUR ---
RN GPS NOTE/ DISCHARGE NOTES PT. DICHARGE TO TELE IN STABLE CONDITION IN ROOM # 308,PT. D/C WITH ALL MD ORDERS AND ALL BELONGINS GIVEN TO PATIENT, PT. DENIES ANY CHEST PAIN /SOB AT THIS THIS TIME ,VITAL SIGNS IN STABLE ,SEE VITAL SIGNS SHEET.
--- NOTE | 2017-09-21 14:48 | NUR ---
Discharge Note: Pt was discharged to the medical floor on 09/21/17.
[2017-09-22] MEDS ORDERED: Digoxin PO (12:23)
[2017-09-22] MEDS ORDERED: MAGN400O6 PO (14:57)
[2017-09-22] MEDS ORDERED: ACET-868 PO (14:57)
[2017-09-22] MEDS ORDERED: TEMA15CA PO (14:57)
[2017-09-22] MEDS ORDERED: FLUV50TA10 GT (14:57)
[2017-09-22] MEDS ORDERED: LORA1TAB PO (14:57)
[2017-09-22] MEDS ORDERED: FLUV50TA10 PO (14:57)
[2017-09-22] MEDS ORDERED: MAG30ORA PO (14:57)
== END 2017-09-21 05:09 | disposition short-term general hospital (02) | DRG 885 ==
LOC: GPS 13:29
PROVIDERS: ADMIT Psychiatry & Neurology Psychiatry; ATTEND Nurse Practitioner Acute Care
DX: F25.9 Schizoaffective disorder, unspecified (principal); B19.20 Unspecified viral hepatitis C without hepatic coma; R45.851 Suicidal ideations; K21.9 Gastro-esophageal reflux disease without esophagitis; M19.90 Unspecified osteoarthritis, unspecified site; E03.9 Hypothyroidism, unspecified; F32.9 Major depressive disorder, single episode, unspecified; Z91.5 Personal history of self-harm; F29 Unspecified psychosis not due to a substance or known physiological condition
CPT/HCPCS: 36415; 71045-TC; 80048-TC; 80053-TC; 80061-TC; 81000-TC; 83735-TC; 84100-TC; 84443-TC; 84484-TC; 85025-TC; 87081-TC

== ENCOUNTER 2017-09-21 05:01 | Inpatient (IN) | payer MEDICARE, OTHER ==
[~2017-09-21] VITALS: Ht 175.3 cm; Wt 69.9 kg
[2017-09-21 05:00] VITALS: BP 110/56
[~2017-09-21 05:01] MED LIST changes: +BUSP10TA35 PO; +RISP0.253 PO
[2017-09-21 05:10] VITALS: BP 110/56
--- NOTE | 2017-09-21 05:10 | NUR ---
RN NOTES RECEIVED PT. FROM GPS, A/OX3, AMBULATORY ON HOLD, A-FIB ON TELE MONITOR HR-68, SITTER AT BEDSIDE, DENIES PAIN, ADMISSION INSTRUCTION RENDERED, CALL LIGHT WITHIN REACH, SIDERAILSUPX2, CONTINUE TO MONITOR
[2017-09-21] MEDS ORDERED: ONDANSETRON HCL/PF 4 MG/2 ML VIAL IVP PRN (06:30)
[2017-09-21] MEDS ORDERED: ACETAMINOPHEN 325 MG TABLET PO PRN (06:30)
[2017-09-21] MEDS ORDERED: HYDROCODONE/APAP 5/325MG 1 EACH TABLET PO PRN (06:30)
[2017-09-21] MEDS ORDERED: Z GUARD REMEDY 2 OZ OINT TP PRN (06:30)
[2017-09-21] MEDS ORDERED: MAG HYDROX/AL HYDROX/SIMETH 30 ML UDC PO PRN (06:30)
[2017-09-21] MEDS ORDERED: MAGNESIUM HYDROXIDE 30 ML UDC PO PRN (06:30)
--- NOTE | 2017-09-21 07:00 | NUR ---
TECHNOLOGY ASSISTANT OPENING NOTES. PT RECEIVED A&0X3, DENIES SI OR THOUGHTS OF SELF HARM AT THIS TIME. PT TOLERATING ROOM AIR WITHOUT DISTRESS AND DENIES PAIN OR DISCOMFORT. PT WITH SITTER 1:1 FOR SAFETY. PT WITH TELE. AFIB 70S. PT WITH IVC AT L FA INTACT, SL AND BANDAGED. PT BED IN LOWEST LOCKED POSITION WITH HANDRAILSX2 AND CALL SOTELO WITHIN REACH. PT BRIEFED ON TODAY'S POC AND IS WITHOUT CONCERN OR COMPLAINT AT THIS TIME.
--- NOTE | 2017-09-21 07:00 | NUR ---
RN NOTES AWAKE, MORNING CARE RENDERED, DENIES PAIN, NO SOB, PT. NEEDS ATTENDED
[2017-09-21 07:21] LABS: CALCIUM, SERUM 8.5 mg/dL (8.5-10.1); CREATININE 0.9 mg/dL (0.6-1.3); POTASSIUM 3.4 mmol/L (3.5-5.1)
[2017-09-21 07:27] LABS: ALBUMIN 3.3 g/dL (3.4-5.0); BILIRUBIN,TOTAL 1.3 mg/dL (0.2-1.0); MAGNESIUM 1.8 mg/dL (1.8-2.4); PHOSPHORUS 3.5 mg/dL (2.5-4.9); TOTAL PROTEIN, SERUM 6.8 g/dL (6.4-8.2)
[2017-09-21 07:28] LABS: TROPONIN I 0.018 ng/mL (0.00-0.056)
[2017-09-21 07:48] LABS: BASOPHILS % (AUTO) 0.9 % (0.0-2.0); EOSINOPHILS % (AUTO) 2.6 % (0.0-6.0); HEMATOCRIT 43 % (33-45); HEMOGLOBIN 14.7 g/dL (11.5-14.8); LYMPHOCYTES # (AUTO) 1.8 /CMM (0.8-4.8); LYMPHOCYTES % (AUTO) 40.9 % (20.0-44.0); MEAN CORPUSCULAR HEMOGLOBIN 34 PG (26.0-33.0); MEAN CORPUSCULAR HGB CONC 34 g/dl (31.0-36.0); MEAN CORPUSCULAR VOLUME 99 fL (82-100); MONOCYTES # (AUTO) 0.3 /CMM (0.1-1.30); MONOCYTES % (AUTO) 6.9 % (2.0-12.0); NEUTROPHILS # (AUTO) 2.1 /CMM (1.8-8.9); NEUTROPHILS % (AUTO) 48.7 % (43.0-81.0); PLATELET COUNT (AUTO) 103 /CMM (150-450); RDW COEFFICIENT OF VARIATION 14.1 (11.5-15.0); RED BLOOD CELL COUNT(AUTO) 4.34 MIL/uL (4.0-5.2); WHITE BLOOD COUNT (AUTO) 4.3 K/uL (4.3-11.0)
[2017-09-21 08:00] VITALS: BP 103/66
[2017-09-21] MEDS: risperiDONE 1 MG TABLET PO SCH ×2 (08:27→16:47)
[2017-09-21] MEDS: SENNOSIDES 8.6 MG TABLET PO SCH (08:27)
[2017-09-21] MEDS: busPIRone 5 MG TABLET PO SCH ×2 (08:27→16:47)
[2017-09-21] MEDS: PANTOPRAZOLE 40 MG TABLET.DR PO SCH (08:28)
[2017-09-21] MEDS: LEVOTHYROXINE SODIUM 75 MCG TABLET PO SCH (08:28)
[2017-09-21] MEDS ORDERED: POTASSIUM CHLORIDE 20 MEQ TAB.PRT.SR PO SCH (10:30)
[2017-09-21 10:45] VITALS: BP 123/58
[2017-09-21] MEDS: ENOXAPARIN SODIUM 40 MG/0.4 ML DISP.SYRIN SQ SCH (10:47)
--- NOTE | 2017-09-21 10:54 | NUR ---
BUSINESS OBJECTS ANALYST NOTES. AT 1027 PT WAS HEARD FALLING AND VISUALIZED ON FLOOR, REPEATER CHIEF NOTIFIED. PT REPORTS WANTING TO TEST WALKING AND FALLING. PT ASSISTED TO BED. PT WITH CUT TO LEFT LATERAL FOREHEAD JUST ABOVE LEFT EYE. SMALL GRAZE TO RIGHT KNEE AND LEFT 2ND KNUCKLE. PHOTOGRAPHS TAKEN AND CHART UP DATED. BASIC BANDAGING COMPLETED. PT VITALS WNL AND CONSISTENT WITH TRENDS. HUGO WHITMORE ND NURSING ANALYTIC MANAGER NOTIFIED. INCIDENT REPORT TO COMPLETE.
--- NOTE | 2017-09-21 11:04 | NUR ---
'SEE NURSING NOTES'. LOVENOX HELD PER MANAGER WELDING BOBO R/T TO RECENT FALL.
--- NOTE | 2017-09-21 11:10 | NUR ---
MS/RN Incident report Incident report filed, unique ID [id number]
[2017-09-21 11:39] LABS: THYROID STIMULATING HORMONE 1.401 uIU/mL (0.358-3.74)
[2017-09-21] MEDS ORDERED: DIGOXIN INJ 0.5 MG/2 ML AMPUL IV SCH (12:00)
[2017-09-21] MEDS ORDERED: LIDOCAINE 1%-EPI 1:100,000 20 ML VIAL TP ONE (12:30)
[2017-09-21 16:00] VITALS: BP 110/65
--- NOTE | 2017-09-21 18:51 | NUR ---
WELDER METAL FAB CLOSING NOTES. PT REMAINS A&0X3, CURRENTLY DENIES SI OR THOUGHTS OF SELF HARM. PT DENIES PAIN OR DISCOMFORT FROM FALL. PT TOLERATING ROOM AIR WITHOUT DISTRESS. PT WITH SITTER 1:1 FOR SAFETY. PT WITH TELE. AFIB 70S. PT WITH IVC AT L FA INTACT, SL AND BANDAGED. PT BED IN LOWEST LOCKED POSITION WITH HANDRAILSX2 AND CALL SOTELO WITHIN REACH. ALL DAY NURSE DUTIES ATTENDED TO AND PT IS WITHOUT CONCERN OR COMPLIANT. ENDORSED TO NIGHT NURSE AT BEDSIDE FOR DEMETRIUS.
--- NOTE | 2017-09-21 19:49 | NUR ---
MIKEY OPENING NOTES RECEIVED REPORT FROM JESSIE ALONSO RN. FOUND PT GOING TO THE RESTROOM WITH STANDBY ASSISTANCE BY THE SITTER AND TAMMIE TOBAR. NO S/S OF ACUTE DISTRESS OR SOB NOTED. ON TELE MONITOR, WITH AFIB 70's. IV ACCESS ON LFA #22G, SL. SAFETY MEASURES IN PLACE. BED LOW, LOCKED, HOB ELEVATED, SIDE RAILS UP, CALL LIGHT AND BEDSIDE TABLE WITHIN REACH. WILL CONTINUE TO MONITOR Pt THROUGHOUT THE NIGHT FOR SAFETY. Addendum: 09/21/17 at 2254 by KHOA HUGO RN RECEIVED REPORT FROM MIKEY ALONSO
[2017-09-21] MEDS: DIGOXIN INJ 0.5 MG/2 ML AMPUL IV SCH (20:58)
[2017-09-22] MEDS: DIGOXIN INJ 0.5 MG/2 ML AMPUL IV SCH (02:30)
--- NOTE | 2017-09-22 03:45 | NUR ---
RN NOTES SPOKE WITH SANA ON THE PHONE. INFORMED HIM OF Pt's HEART RATE BEING CLIFF AND GOING LOW 40 WHILE SLEEPING. SAID TO HOLD THE 2ND DIGOXIN DOSE AT THIS TIME, AND WILL FOLLOW UP IN THE MORNING.
[2017-09-22 06:33] LABS: BASOPHILS % (AUTO) 0.7 % (0.0-2.0); EOSINOPHILS % (AUTO) 2.4 % (0.0-6.0); HEMATOCRIT 44 % (33-45); LYMPHOCYTES % (AUTO) 44.2 % (20.0-44.0); MEAN CORPUSCULAR HEMOGLOBIN 34 PG (26.0-33.0); MEAN CORPUSCULAR HGB CONC 34 g/dl (31.0-36.0); MEAN CORPUSCULAR VOLUME 99 fL (82-100); MONOCYTES # (AUTO) 0.3 /CMM (0.1-1.30); MONOCYTES % (AUTO) 7.7 % (2.0-12.0); PLATELET COUNT (AUTO) 106 /CMM (150-450); RDW COEFFICIENT OF VARIATION 14.2 (11.5-15.0); RED BLOOD CELL COUNT(AUTO) 4.45 MIL/uL (4.0-5.2); WHITE BLOOD COUNT (AUTO) 4.4 K/uL (4.3-11.0)
[2017-09-22 06:37] LABS: CALCIUM, SERUM 8.4 mg/dL (8.5-10.1); CREATININE 0.9 mg/dL (0.6-1.3); MAGNESIUM 1.8 mg/dL (1.8-2.4); PHOSPHORUS 3.9 mg/dL (2.5-4.9); POTASSIUM 3.7 mmol/L (3.5-5.1)
--- NOTE | 2017-09-22 06:40 | NUR ---
RN CLOSING NOTES GPS Pt, ON 5250 HOLD EXP 09/27/17; SITTER AT BEDSIDE. Pt DENIES HAVING ANY SI. NO SIGNIFICANT CHANGES IN Pt's CONDITION. Pt REMAINS STABLE AT THIS TIME. TELE MONITOR AFIB 65. ALL NEEDS MET AND ATTENDED TO. SAFETY MEASURES IN PLACE. WILL ENDORSE TO DAYSHIFT RN FOR Pt's DEMETRIUS.
--- NOTE | 2017-09-22 07:10 | NUR ---
REGISTERED NURSE CARDIAC TELEMETRY INITIAL NOTES Received patient awake on Bender's position with DRYWALL STRIPPER HELPER sitter at bedside. A/O x 3, able to communicate needs. S/P fall with L eyebrow laceration covered with clean, dry and intact dressing. Denies any discomfort as this time. On tele with Afib/Aflutter @ 65, @ 40s-50s while asleep per report. On 5250 hold expires 09/27/17. With intact and patent SL @ LFA G#22 no s/sx of infection noted. Kept clean, dry and comfortable. Will monitor accordingly.
[2017-09-22 08:00] VITALS: BP 97/59
[2017-09-22] MEDS: PANTOPRAZOLE 40 MG TABLET.DR PO SCH (08:01)
[2017-09-22] MEDS: LEVOTHYROXINE SODIUM 75 MCG TABLET PO SCH (08:01)
[2017-09-22] MEDS ORDERED: NEOMY SULF/BACITRAC ZN/POLY 15 GM TUBE TP SCH (09:00)
[2017-09-22] MEDS: ENOXAPARIN SODIUM 40 MG/0.4 ML DISP.SYRIN SQ SCH (09:02)
[2017-09-22] MEDS: busPIRone 5 MG TABLET PO SCH (09:03)
[2017-09-22] MEDS: SENNOSIDES 8.6 MG TABLET PO SCH (09:03)
[2017-09-22] MEDS: risperiDONE 1 MG TABLET PO SCH (09:03)
[2017-09-22] MEDS ORDERED: Digoxin PO (12:23)
[2017-09-22] MEDS ORDERED: DIGOXIN 0.125 MG TABLET PO SCH (13:00)
[2017-09-22] MEDS ORDERED: FLUV50TA10 PO (14:57)
[2017-09-22] MEDS ORDERED: MAGN400O6 PO (14:57)
[2017-09-22] MEDS ORDERED: TEMA15CA PO (14:57)
[2017-09-22] MEDS ORDERED: ACET-868 PO (14:57)
[2017-09-22] MEDS ORDERED: MAG30ORA PO (14:57)
[2017-09-22] MEDS ORDERED: LORA1TAB PO (14:57)
[2017-09-22] MEDS ORDERED: FLUV50TA10 GT (14:57)
--- NOTE | 2017-09-22 15:05 | NUR ---
CROWN POUNCERSUPERVISOR COMPOUNDING AND FINISHING NOTES Received order for discharge to [facility] GPS. In stable condition, A/O x3. No complaint of any pain, no distress noted. D/C instructions given to the patient, educational material provided. Belongings list checked and accounted for. No pneumonia and influenza vaccine given, out of season. Patient in agreement with discharge. Tele monitor d/c and removed from the patient. IV cannula removed, intact and complete. Pictures of skin condition taken with patient's permission. Patient is transported to GPS via wheelchair by VISION REHABILITATION THERAPIST accompanied by MIKEY Abel, left the unit ambulatory at 1500.
== END 2017-09-22 14:04 | DRG 982 ==
LOC: TELE 05:01 → MED 09-22 10:55
PROVIDERS: ADMIT Nurse Practitioner Acute Care; ATTEND Nurse Practitioner Acute Care
PROC: 0KB10ZZ Excision of Facial Muscle, Open Approach (ICD-10-PCS; principal; 2017-09-21)
DX: I48.91 Unspecified atrial fibrillation (principal); E44.1 Mild protein-calorie malnutrition; F23 Brief psychotic disorder; R45.851 Suicidal ideations; S01.112A Laceration without foreign body of left eyelid and periocular area, initial encounter; S01.81XA Laceration without foreign body of other part of head, initial encounter; W18.30XA Fall on same level, unspecified, initial encounter; E87.6 Hypokalemia; Y93.9 Activity, unspecified; Y92.230 Patient room in hospital as the place of occurrence of the external cause; Y99.9 Unspecified external cause status; S50.311A Abrasion of right elbow, initial encounter; S60.511A Abrasion of right hand, initial encounter; S80.212A Abrasion, left knee, initial encounter; S80.211A Abrasion, right knee, initial encounter
CPT/HCPCS: 36415; 70450-TC; 80048-TC; 80053-TC; 83735-TC; 84100-TC; 84439-TC; 84443-TC; 84484-TC; 85025-TC; 87081-TC; 93307-TC; A6403; J1160; J1650; J3490

== ENCOUNTER 2017-09-22 14:20 | Inpatient (IN) | payer MEDICARE, OTHER ==
[~2017-09-22] VITALS: Ht 175.3 cm; Wt 67.6 kg
[~2017-09-22 14:20] MED LIST changes: +Digoxin PO
[2017-09-22] MEDS ORDERED: FLUV50TA10 GT (14:57)
[2017-09-22] MEDS ORDERED: FLUV50TA10 PO (14:57)
[2017-09-22] MEDS ORDERED: TEMA15CA PO (14:57)
[2017-09-22] MEDS ORDERED: ACET-868 PO (14:57)
[2017-09-22] MEDS ORDERED: MAG30ORA PO (14:57)
[2017-09-22] MEDS ORDERED: LORA1TAB PO (14:57)
[2017-09-22] MEDS ORDERED: MAGN400O6 PO (14:57)
[2017-09-22 15:00] VITALS: BP 115/72
[2017-09-22 16:00] VITALS: BP 120/57
[2017-09-22] MEDS ORDERED: LORAZEPAM 0.5 MG TABLET PO PRN (16:00)
[2017-09-22] MEDS ORDERED: MAGNESIUM HYDROXIDE 30 ML UDC PO PRN ×2 (16:00→17:00)
[2017-09-22] MEDS ORDERED: ACETAMINOPHEN 325 MG TABLET PO PRN ×2 (16:00→17:00)
[2017-09-22] MEDS ORDERED: MAG HYDROX/AL HYDROX/SIMETH 30 ML UDC PO PRN ×2 (16:00→17:00)
[2017-09-22] MEDS: BENZTROPINE MESYLATE (1 MG) 1 MG TABLET PO SCH (16:31)
[2017-09-22] MEDS: HALOPERIDOL 5 MG TABLET PO SCH (16:31)
[2017-09-22] MEDS: FLUVOXAMINE MALEATE 50 MG TABLET PO SCH (16:31)
[2017-09-22] MEDS ORDERED: BENZTROPINE MESYLATE (1 MG) 1 MG TABLET PO SCH (17:00)
[2017-09-22 20:10] VITALS: BP 105/74
[2017-09-22 23:00] VITALS: BP 106/68
[2017-09-23 07:35] LABS: CHOLESTEROL 146 mg/dL (<200); HDL CHOLESTEROL 43 mg/dL (40-60); LDL 92 mg/dL (0-99); TRIGLYCERIDES 63 mg/dL (30-150)
[2017-09-23 07:41] LABS: CALCIUM, SERUM 8.2 mg/dL (8.5-10.1); CREATININE 0.9 mg/dL (0.6-1.3); POTASSIUM 3.8 mmol/L (3.5-5.1); TOTAL PROTEIN, SERUM 6.2 g/dL (6.4-8.2)
[2017-09-23 08:00] VITALS: BP 122/57
[2017-09-23] MEDS: SENNOSIDES 8.6 MG TABLET PO SCH (08:49)
[2017-09-23] MEDS: HALOPERIDOL 5 MG TABLET PO SCH ×3 (08:49→21:29)
[2017-09-23] MEDS: FLUVOXAMINE MALEATE 50 MG TABLET PO SCH ×3 (08:49→17:11)
[2017-09-23] MEDS: BENZTROPINE MESYLATE (1 MG) 1 MG TABLET PO SCH ×3 (08:49→17:11)
[2017-09-23] MEDS: LEVOTHYROXINE SODIUM 75 MCG TABLET PO SCH (08:49)
[2017-09-23 11:07] LABS: MAGNESIUM 1.7 mg/dL (1.8-2.4)
[2017-09-23 11:21] LABS: THYROID STIMULATING HORMONE 1.583 uIU/mL (0.358-3.74)
[2017-09-23 16:00] VITALS: BP 132/64
[2017-09-23] MEDS: NEOMY SULF/BACITRAC ZN/POLY 15 GM TUBE TP SCH (16:35)
[2017-09-23 21:14] VITALS: BP 123/74
[2017-09-23 23:30] VITALS: BP 112/70
[2017-09-23] MEDS: TEMAZEPAM 7.5 MG CAPSULE PO PRN (23:32)
[2017-09-24 07:37] LABS: BASOPHILS % (AUTO) 0.9 % (0.0-2.0); EOSINOPHILS % (AUTO) 3.8 % (0.0-6.0); HEMATOCRIT 39 % (33-45); HEMOGLOBIN 13.4 g/dL (11.5-14.8); LYMPHOCYTES # (AUTO) 1.3 /CMM (0.8-4.8); LYMPHOCYTES % (AUTO) 49.4 % (20.0-44.0); MEAN CORPUSCULAR HEMOGLOBIN 34 PG (26.0-33.0); MEAN CORPUSCULAR HGB CONC 34 g/dl (31.0-36.0); MEAN CORPUSCULAR VOLUME 99 fL (82-100); MONOCYTES # (AUTO) 0.2 /CMM (0.1-1.30); MONOCYTES % (AUTO) 8.9 % (2.0-12.0); NEUTROPHILS # (AUTO) 0.9 /CMM (1.8-8.9); PLATELET COUNT (AUTO) 75 /CMM (150-450); RDW COEFFICIENT OF VARIATION 14.3 (11.5-15.0); RED BLOOD CELL COUNT(AUTO) 3.97 MIL/uL (4.0-5.2); WHITE BLOOD COUNT (AUTO) 2.5 K/uL (4.3-11.0)
[2017-09-24 08:40] LABS: EOSINOPHILS % (MANUAL) 3 % (0-4); LYMPHOCYTES % (MANUAL) 51 % (16-48); MONOCYTES % (MANUAL) 3 % (0-11.0); NEUTROPHILS % (MANUAL) 43 (42-76)
[2017-09-24 09:00] VITALS: BP 126/79
[2017-09-24] MEDS: BENZTROPINE MESYLATE (1 MG) 1 MG TABLET PO SCH ×3 (09:02→16:23)
[2017-09-24] MEDS: FLUVOXAMINE MALEATE 50 MG TABLET PO SCH ×3 (09:02→16:23)
[2017-09-24] MEDS: LEVOTHYROXINE SODIUM 75 MCG TABLET PO SCH (09:02)
[2017-09-24] MEDS: SENNOSIDES 8.6 MG TABLET PO SCH (09:02)
[2017-09-24] MEDS: HALOPERIDOL 5 MG TABLET PO SCH ×3 (09:02→21:31)
[2017-09-24] MEDS: NEOMY SULF/BACITRAC ZN/POLY 15 GM TUBE TP SCH (09:14)
[2017-09-24 16:00] VITALS: BP 129/69
[2017-09-24] MEDS: MAGNESIUM OXIDE 400 MG TABLET PO SCH (18:58)
[2017-09-24 20:00] VITALS: BP 123/68
[2017-09-24] MEDS: TEMAZEPAM 7.5 MG CAPSULE PO PRN (21:32)
[2017-09-24] MEDS ORDERED: FLUVOXAMINE MALEATE 50 MG TABLET PO SCH (22:00)
[2017-09-24 23:09] VITALS: BP 123/68
[2017-09-25 08:00] VITALS: BP 115/76
[2017-09-25] MEDS: BENZTROPINE MESYLATE (1 MG) 1 MG TABLET PO SCH ×3 (08:44→17:05)
[2017-09-25] MEDS: HALOPERIDOL 5 MG TABLET PO SCH ×3 (08:44→21:13)
[2017-09-25] MEDS: LEVOTHYROXINE SODIUM 75 MCG TABLET PO SCH (08:44)
[2017-09-25] MEDS: MAGNESIUM OXIDE 400 MG TABLET PO SCH ×2 (08:45→17:05)
[2017-09-25] MEDS: FLUVOXAMINE MALEATE 50 MG TABLET PO SCH ×2 (08:47→17:05)
[2017-09-25] MEDS: SENNOSIDES 8.6 MG TABLET PO SCH (08:47)
[2017-09-25] MEDS: NEOMY SULF/BACITRAC ZN/POLY 15 GM TUBE TP SCH (11:08)
[2017-09-25 16:00] VITALS: BP 124/75
[2017-09-25 20:10] VITALS: BP 121/75
[2017-09-25] MEDS: TEMAZEPAM 7.5 MG CAPSULE PO PRN (21:14)
[2017-09-26 08:00] VITALS: BP 103/59
[2017-09-26] MEDS: LEVOTHYROXINE SODIUM 75 MCG TABLET PO SCH (08:55)
[2017-09-26] MEDS: HALOPERIDOL 5 MG TABLET PO SCH ×3 (08:55→21:43)
[2017-09-26] MEDS: SENNOSIDES 8.6 MG TABLET PO SCH (08:55)
[2017-09-26] MEDS: BENZTROPINE MESYLATE (1 MG) 1 MG TABLET PO SCH ×3 (08:55→17:28)
[2017-09-26] MEDS: MAGNESIUM OXIDE 400 MG TABLET PO SCH ×2 (08:55→17:28)
[2017-09-26] MEDS: NEOMY SULF/BACITRAC ZN/POLY 15 GM TUBE TP SCH (08:56)
[2017-09-26] MEDS: SERTRALINE HCL 50 MG TABLET PO SCH (08:57)
[2017-09-26] MEDS ORDERED: SERTRALINE HCL 50 MG TABLET PO SCH (09:00)
[2017-09-26 16:00] VITALS: BP_SYST 110; BP_SYST 124; BP_DIAS 54; BP_DIAS 58
[2017-09-26 20:00] VITALS: BP 127/76
[2017-09-26] MEDS: TEMAZEPAM 7.5 MG CAPSULE PO PRN (21:43)
[2017-09-27 08:00] VITALS: BP 126/82
[2017-09-27] MEDS: MAGNESIUM OXIDE 400 MG TABLET PO SCH ×2 (09:00→16:48)
[2017-09-27] MEDS: HALOPERIDOL 5 MG TABLET PO SCH ×3 (09:01→21:15)
[2017-09-27] MEDS: LEVOTHYROXINE SODIUM 75 MCG TABLET PO SCH (09:01)
[2017-09-27] MEDS: SENNOSIDES 8.6 MG TABLET PO SCH (09:01)
[2017-09-27] MEDS: BENZTROPINE MESYLATE (1 MG) 1 MG TABLET PO SCH ×3 (09:01→16:47)
[2017-09-27] MEDS: SERTRALINE HCL 50 MG TABLET PO SCH (09:01)
[2017-09-27] MEDS: NEOMY SULF/BACITRAC ZN/POLY 15 GM TUBE TP SCH (09:03)
[2017-09-27 16:06] LABS: CALCIUM, SERUM 8.7 mg/dL (8.5-10.1); POTASSIUM 3.7 mmol/L (3.5-5.1)
[2017-09-27 16:09] VITALS: BP 144/69
[2017-09-27 20:02] VITALS: BP 129/75
[2017-09-27] MEDS: TEMAZEPAM 7.5 MG CAPSULE PO PRN (23:11)
[2017-09-28 08:00] VITALS: BP 133/73
[2017-09-28] MEDS: SERTRALINE HCL 50 MG TABLET PO SCH (08:47)
[2017-09-28] MEDS: BENZTROPINE MESYLATE (1 MG) 1 MG TABLET PO SCH ×3 (08:47→17:43)
[2017-09-28] MEDS: LEVOTHYROXINE SODIUM 75 MCG TABLET PO SCH (08:47)
[2017-09-28] MEDS: SENNOSIDES 8.6 MG TABLET PO SCH (08:47)
[2017-09-28] MEDS: HALOPERIDOL 5 MG TABLET PO SCH ×2 (08:47→17:43)
[2017-09-28] MEDS: MAGNESIUM OXIDE 400 MG TABLET PO SCH ×2 (08:50→17:43)
[2017-09-28] MEDS: NEOMY SULF/BACITRAC ZN/POLY 15 GM TUBE TP SCH (08:52)
[2017-09-28 16:08] VITALS: BP 129/69
[2017-09-28 19:52] VITALS: BP 120/79
[2017-09-28] MEDS: TEMAZEPAM 7.5 MG CAPSULE PO PRN (21:36)
[2017-09-29 08:09] VITALS: BP 123/76
[2017-09-29] MEDS: MAGNESIUM OXIDE 400 MG TABLET PO SCH ×2 (08:11→16:47)
[2017-09-29] MEDS: SENNOSIDES 8.6 MG TABLET PO SCH (08:11)
[2017-09-29] MEDS: LEVOTHYROXINE SODIUM 75 MCG TABLET PO SCH (08:11)
[2017-09-29] MEDS: risperiDONE 1 MG TABLET PO SCH ×2 (08:13→16:47)
[2017-09-29] MEDS: SERTRALINE HCL 50 MG TABLET PO SCH (08:13)
[2017-09-29] MEDS: DOCUSATE SODIUM 100 MG CAPSULE PO SCH ×2 (08:13→16:47)
[2017-09-29] MEDS: NEOMY SULF/BACITRAC ZN/POLY 15 GM TUBE TP SCH (08:14)
[2017-09-29 16:12] VITALS: BP 138/90
[2017-09-29 19:54] VITALS: BP 123/75
[2017-09-30 08:00] VITALS: BP 122/74
[2017-09-30] MEDS: DOCUSATE SODIUM 100 MG CAPSULE PO SCH ×2 (08:04→16:58)
[2017-09-30] MEDS: LEVOTHYROXINE SODIUM 75 MCG TABLET PO SCH (08:04)
[2017-09-30] MEDS: MAGNESIUM OXIDE 400 MG TABLET PO SCH ×2 (08:04→16:58)
[2017-09-30] MEDS: SENNOSIDES 8.6 MG TABLET PO SCH (08:04)
[2017-09-30] MEDS: SERTRALINE HCL 50 MG TABLET PO SCH (08:05)
[2017-09-30] MEDS: risperiDONE 1 MG TABLET PO SCH ×2 (08:06→16:58)
[2017-09-30] MEDS: NEOMY SULF/BACITRAC ZN/POLY 15 GM TUBE TP SCH (08:11)
[2017-09-30 16:00] VITALS: BP 123/60
[2017-09-30 20:06] VITALS: BP 131/84
[2017-10-01] MEDS: TEMAZEPAM 7.5 MG CAPSULE PO PRN (00:16)
[2017-10-01] MEDS: DOCUSATE SODIUM 100 MG CAPSULE PO SCH (08:21)
[2017-10-01] MEDS: risperiDONE 1 MG TABLET PO SCH (08:21)
[2017-10-01] MEDS: SENNOSIDES 8.6 MG TABLET PO SCH (08:21)
[2017-10-01] MEDS: MAGNESIUM OXIDE 400 MG TABLET PO SCH (08:21)
[2017-10-01] MEDS: SERTRALINE HCL 50 MG TABLET PO SCH (08:21)
[2017-10-01] MEDS: NEOMY SULF/BACITRAC ZN/POLY 15 GM TUBE TP SCH (08:21)
[2017-10-01] MEDS: LEVOTHYROXINE SODIUM 75 MCG TABLET PO SCH (08:22)
[2017-10-01 08:36] VITALS: BP 124/79
== END 2017-10-01 14:40 | DRG 885 ==
LOC: GPS 14:20
PROVIDERS: ADMIT Psychiatry & Neurology Psychiatry; ATTEND Internal Medicine
DX: F25.9 Schizoaffective disorder, unspecified (principal); R45.851 Suicidal ideations; E44.1 Mild protein-calorie malnutrition; I48.91 Unspecified atrial fibrillation; Z91.5 Personal history of self-harm; E78.5 Hyperlipidemia, unspecified; E83.42 Hypomagnesemia; Z73.6 Limitation of activities due to disability; Z91.81 History of falling; F41.9 Anxiety disorder, unspecified; Z68.22 Body mass index [BMI] 22.0-22.9, adult; F29 Unspecified psychosis not due to a substance or known physiological condition; S01.81XD Laceration without foreign body of other part of head, subsequent encounter; X58.XXXD Exposure to other specified factors, subsequent encounter; Z86.19 Personal history of other infectious and parasitic diseases; S61.401D Unspecified open wound of right hand, subsequent encounter; S80.212D Abrasion, left knee, subsequent encounter; S80.211D Abrasion, right knee, subsequent encounter; S50.311D Abrasion of right elbow, subsequent encounter
CPT/HCPCS: 36415; 80048-TC; 80053-TC; 80061-TC; 82746; 82962-TC; 83540-TC; 83735-TC; 84443-TC; 85025-TC

== ENCOUNTER 2019-08-13 18:44 | Inpatient (IN) | payer MEDICARE, OTHER ==
[~2019-08-13] VITALS: Ht 172.7 cm; Wt 77.1 kg
[~2019-08-13 18:44] MED LIST changes: +ACET-868 PO; -BUSP10TA35 PO; -Digoxin PO; +FLUV50TA10 PO; +MAG30ORA PO; +MAGN400O6 PO; -OMEP20CA10 PO; -POTA99TA14 PO; -RISP0.253 PO; -SENN-167 PO; +SENN-261 PO
[2019-08-13 20:13] VITALS: BP 139/79
--- NOTE | 2019-08-13 20:15 | NUR ---
GPS SPLICING MACHINE OPERATOR NOTES: ADMITTED 68 Y/O FEMALE. PT ADMITTED FROM [facility] TO [facility] GPS UNIT ON A 5150. PER HOLD, PT WENT TO THE NEIGHBORS DOOR WITH A PAIR OF BOX CUTTERS AND MADE THREATS. PT HAS BEEN UNCOOPERATIVE WITH EVERYONE AND REFUSING TO TAKE HER ANTIPSYCHOTIC MEDS. UPON FACE TO FACE ASSESSMENT, PT IS ALERT ORIENTATED X3, UNCOOPERATIVE, ANXIOUS, PARANOID, NEEDY, DEPRESSED,RESERVED, FLAT AFFECT, AND GUARDED. WHEN ASKED PT THE REASON SHE IS HERE, PT STATED, " DON'T ASK ME" PT SIGNED CONSENT PAPERS. ENVIRONMENTAL SAFETY CHECK DONE Q15MIN. ENCOURAGE TO VERBALIZE THOUGHTS AND FEELINGS WITH STAFF. ORIENTED TO THE UNIT. NURSING ASSESSMENT DONE. BODY ASSESSMENT CHECKED W/ NOTED LEFT ANKLE REDNESS, LEFT/ RIGHT ANKLE EDEMA, LEFT/RIGHT ARM DISCOLORATION/ REDNESS, AND BILATERAL TOE LONG NAIL/ FUNGUS. PER PT REQUEST FOR NO FAMILY OR FRIEND TO BE NOTIFIED OF ER ADMISSION. PT STATED THAT HER MOTHER HAS AND REFUSES TO CALL NUMBER LISTED ON FACE SHEET. PT SIGNED APPROPRIATE PAPER WORK. WILL ENDORSE TO NEXT SHIFT. NOTIFIED MD OF PTS ADMISSION. PT REFUSED INITIAL BLOOD SUGAR CHECK. EXPLAIN RISKS AND BENEFITS. PT STILL REFUSED X3. PICTURE TAKEN OF PTS FACE. PICTURE PUT IN CHART. PROVIDED PT W/ HANDBOOK AND MED GUIDE. NO S.S OF RESP DISTRESS. BREATHING EVEN AND UNLABORED. NO S/S OF PAIN AT THIS TIME. CONTINUE TO MONITOR.
[2019-08-13] MEDS ORDERED: MAGNESIUM HYDROXIDE 30 ML UDC PO PRN (21:00)
[2019-08-13] MEDS ORDERED: MAG HYDROX/AL HYDROX/SIMETH 30 ML UDC PO PRN (21:00)
[2019-08-13] MEDS ORDERED: ACETAMINOPHEN 325 MG TABLET PO PRN ×2 (21:00→22:30)
[2019-08-13] MEDS ORDERED: BLOOD SUGAR DIAGNOSTIC 1 EACH STRIP IN ONE (22:00)
[2019-08-13] MEDS ORDERED: ALBU18HF2 INH (22:03)
[2019-08-13] MEDS ORDERED: BIOT5TAB PO (22:04)
[2019-08-13] MEDS ORDERED: CHOL400T11 PO (22:09)
[2019-08-13] MEDS ORDERED: FURO40TA5 PO (22:10)
[2019-08-13] MEDS ORDERED: OMEP20CA15 PO (22:11)
[2019-08-13] MEDS ORDERED: RALO60TA PO (22:18)
[2019-08-13] MEDS ORDERED: TRAZ-182 PO (22:19)
[2019-08-13] MEDS ORDERED: ALBUTEROL SULFATE INH 18 GM HFA.AER.AD IH PRN (22:30)
[2019-08-14 06:37] LABS: CREATININE 0.8 mg/dL (0.6-1.3); POTASSIUM 3.8 mmol/L (3.5-5.1)
[2019-08-14 06:48] LABS: BASOPHILS % (AUTO) 0.8 % (0.0-2.0); EOSINOPHILS % (AUTO) 3.1 % (0.0-6.0); HEMATOCRIT 34 % (33-45); HEMOGLOBIN 11.3 g/dL (11.5-14.8); LYMPHOCYTES # (AUTO) 1.9 /CMM (0.8-4.8); LYMPHOCYTES % (AUTO) 48.1 % (20.0-44.0); MEAN CORPUSCULAR HGB CONC 34 g/dl (31.0-36.0); MEAN CORPUSCULAR VOLUME 100 fL (82-100); MONOCYTES # (AUTO) 0.4 /CMM (0.1-1.30); MONOCYTES % (AUTO) 9.2 % (2.0-12.0); NEUTROPHILS # (AUTO) 1.5 /CMM (1.8-8.9); NEUTROPHILS % (AUTO) 38.8 % (43.0-81.0); PLATELET COUNT (AUTO) 57 /CMM (150-450); RED BLOOD CELL COUNT(AUTO) 3.34 MIL/uL (4.0-5.2); WHITE BLOOD COUNT (AUTO) 3.9 K/uL (4.3-11.0)
[2019-08-14 06:50] LABS: ALBUMIN 2.4 g/dL (3.4-5.0); BILIRUBIN,DIRECT 0.6 mg/dL (0.0-0.2); BILIRUBIN,TOTAL 1.4 mg/dL (0.2-1.0); MAGNESIUM 1.6 mg/dL (1.8-2.4); PHOSPHORUS 3.2 mg/dL (2.5-4.9); THYROID STIMULATING HORMONE 6.845 uIU/mL (0.358-3.74); TOTAL PROTEIN, SERUM 5.6 g/dL (6.4-8.2)
[2019-08-14] MEDS: LEVOTHYROXINE SODIUM 75 MCG TABLET PO SCH (07:57)
[2019-08-14] MEDS: PANTOPRAZOLE 40 MG TABLET.DR PO SCH (07:57)
[2019-08-14 08:00] VITALS: BP 123/72
[2019-08-14 08:47] LABS: EOSINOPHILS % (MANUAL) 4 % (0-4); LYMPHOCYTES % (MANUAL) 51 % (16-48); MONOCYTES % (MANUAL) 7 % (0-11.0); NEUTROPHILS % (MANUAL) 38 (42-76)
[2019-08-14] MEDS: FUROSEMIDE 40 MG TABLET PO SCH (08:54)
[2019-08-14] MEDS: SENNOSIDES 8.6 MG TABLET PO SCH (08:54)
[2019-08-14] MEDS: NICOTINE PATCH (14MG) 14 MG PATCH.TD24 TD SCH ×2 (08:54→08:59)
[2019-08-14] MEDS: CHOLECALCIFEROL 1,000 UNIT TABLET (VIT D3) PO SCH (08:56)
[2019-08-14] MEDS ORDERED: Medication Not On Formulary EA (Biotin 5 MG) PO SCH (09:00)
--- NOTE | 2019-08-14 09:00 | NUR ---
RN NOTE- PT IN BED IN ROOM COOPERATIVE CALM INTERACTIVE ON QUERY FA[facility] CONTACT DENYING SI HI AH VH DISORGANIZED THOUGHTS, PARANOID
[2019-08-14] MEDS ORDERED: MAGNESIUM OXIDE 400 MG TABLET PO ONE (10:30)
[2019-08-14 16:00] VITALS: BP 143/84
[2019-08-14 20:16] VITALS: BP 159/90
[2019-08-14] MEDS ORDERED: FLUVOXAMINE MALEATE 50 MG TABLET PO SCH (22:00)
--- NOTE | 2019-08-15 06:29 | NUR ---
GPS RN CLOSING NOTE, PATIENT IN BED ASLEEP AT THIS TIME, NO SOB/ACUTE DISTRESS NOTED, PATIENT REMAINED STABLE THROUGHOUT SHIFT, WITH VERY GOOD SLEEP THROUGHOUT THE NIGHT, ALL NEEDS ATTENDED, SAFETY PRECAUTIONS IN PLACE, BED LOCKED POSITION AND LOWEST POSITION, BED ALARM ON, HOB ELEVATED TO SEMI FOWLERS POSITION, CALL LIGHT WITHIN REACH, WILL ENDORSE CONTINUITY OF CARE TO ONCOMING NURSE.
[2019-08-15] MEDS: LEVOTHYROXINE SODIUM 75 MCG TABLET PO SCH ×2 (07:30→07:53)
[2019-08-15] MEDS: PANTOPRAZOLE 40 MG TABLET.DR PO SCH ×2 (07:30→07:52)
[2019-08-15 08:00] VITALS: BP 149/79
[2019-08-15] MEDS: FUROSEMIDE 40 MG TABLET PO SCH (08:24)
[2019-08-15] MEDS: HALOPERIDOL 5 MG TABLET PO SCH ×3 (08:24→17:00)
[2019-08-15] MEDS: BENZTROPINE MESYLATE (1 MG) 1 MG TABLET PO SCH ×3 (08:24→17:00)
[2019-08-15] MEDS: FLUVOXAMINE MALEATE 50 MG TABLET PO SCH ×3 (08:25→17:00)
[2019-08-15] MEDS: NICOTINE PATCH (14MG) 14 MG PATCH.TD24 TD SCH (08:25)
[2019-08-15] MEDS: SENNOSIDES 8.6 MG TABLET PO SCH (08:25)
[2019-08-15] MEDS: CHOLECALCIFEROL 1,000 UNIT TABLET (VIT D3) PO SCH (08:25)
--- NOTE | 2019-08-15 09:00 | NUR ---
RN NOTE- PT REFUSED ALL MEDS, STATES SHE WANTS 'POISON TO MAKE HERSELF DISAPPEAR' MONITORING FOR SAFETY. PO INTAKE FAIR DENIES SI AT PRESENT HOWEVER. PARANOID DELUSIONAL
--- NOTE | 2019-08-15 11:15 | NUR ---
Family Contact: SW called the pts mother, Farzaneh ([phone]), and left a voicemail stating that the SW would like to discuss the pts discharge plan.
--- NOTE | 2019-08-15 11:29 | NUR ---
Initial Discharge Plan: Pt currently resides at [address] [place] [address]; ([phone]) alone. Pt states that she wants to go back to her home. SW will work with the pt and the MD regarding appropriate discharge planning. SW will form a safe and proper discharge.
[2019-08-15] MEDS: LORAZEPAM 1 MG TABLET PO PRN (12:47)
--- NOTE | 2019-08-15 15:00 | NUR ---
RN NOTE- DC PLANNING NOTE- HARIS CALLED FROM [facility] WHERE PT WILL RESIDE. PLEASE NOTIFY WHEN PT IS PLANNING DC [phone]
[2019-08-15 16:00] VITALS: BP 140/58
--- NOTE | 2019-08-15 16:02 | NUR ---
Group Note: SW encouraged the pt to attend group therapy on 08/15/19 but the pt stated that she refuses to participate because she does not want to be in the hospital and wants to return to her home. SW stated that she can stay in her room and have an individual session with the SW to discuss any topic she would like but the pt refused and told the SW to "work on my discharge."
--- NOTE | 2019-08-15 17:24 | NUR ---
RN NOTE- PT REFUSED MEDS TODAY ON SEVERAL OCCASIONS . PARANOID WITHDRAWN AWARE
[2019-08-15 20:09] VITALS: BP 129/78
--- NOTE | 2019-08-15 20:47 | NUR ---
GPS RN NOTES: REFUSED BLOOD DRAW PT REFUSED BLOOD DRAW TODAY. PT STATED, "RIGHT NOW?! CAN I HAVE SOME DAMN PEACE?!" EXPLAIN RISKS AND BENEFITS. PT STILL REFUSED X3. PT ASK IF IT CAN BE DONE TOMORROW MORNING. CARPET OR RUG LAYER HELPER WILL TRY AGAIN TOMORROW MORNING. WILL ENDORSE TO DAY SHIFT TO F/U.
[2019-08-15] MEDS: TEMAZEPAM 7.5 MG CAPSULE PO PRN (21:08)
--- NOTE | 2019-08-15 21:09 | NUR ---
GPS RN NOTES: INSOMNIA PT C/O UNABLE TO SLEEP. PT REQUESTED SLEEPING MEDOCATION. OFFERED RESTORIL 7.5 MG PO PRN ORDERED. PT AGREED AND TOLERATED MEDICATION WELL. CONTINUE TO MONITOR.
[2019-08-16] MEDS: LEVOTHYROXINE SODIUM 75 MCG TABLET PO SCH (07:16)
[2019-08-16] MEDS: PANTOPRAZOLE 40 MG TABLET.DR PO SCH (07:18)
[2019-08-16 08:00] VITALS: BP 103/59
[2019-08-16] MEDS: HALOPERIDOL 5 MG TABLET PO SCH ×3 (08:55→16:06)
[2019-08-16] MEDS: BENZTROPINE MESYLATE (1 MG) 1 MG TABLET PO SCH ×3 (08:55→16:06)
[2019-08-16] MEDS: FLUVOXAMINE MALEATE 50 MG TABLET PO SCH ×3 (08:55→16:06)
[2019-08-16] MEDS: FUROSEMIDE 40 MG TABLET PO SCH (08:55)
[2019-08-16] MEDS: CHOLECALCIFEROL 1,000 UNIT TABLET (VIT D3) PO SCH (08:55)
[2019-08-16] MEDS: SENNOSIDES 8.6 MG TABLET PO SCH (08:55)
[2019-08-16] MEDS: NICOTINE PATCH (14MG) 14 MG PATCH.TD24 TD SCH (08:56)
--- NOTE | 2019-08-16 10:01 | NUR ---
WOUND CARE CONSULT: PT PRESENTS WITH LOWER EXTREMITY EDEMA, LEFT ANKLE SKIN LESION AND RT GREAT TOENAIL LOOSENED, ALL PRESENT ON ADMISSION. RECOMMEND DPM CONSULT. DR LEO NOTIFIED OF CONSULT REQUEST. PT IS AMBULATORY AND CONTINENT. WILL SEE PRN.
--- NOTE | 2019-08-16 10:40 | NUR ---
COUNTY CONTACT: TIMOTEO received a call from MIKEY Srivastava with the [facility] ([phone]) stating that the [facility] is looking into conserving pt as pt has an acute mental illness and chronic liver disease and pt refuses medical/mental health services and refuses to take medication. Atif provided TIMOTEO with the case management associate phone number ([phone]) to coordinate pts discharge. TIMOTEO informed him that pt may need short term SNF placement as pt is gravely disabled and unable to care for herself. Atif agrees but states he wishes for pt to be transferred to [facility] to resume services and file for conservatorship. He states that he will keep in touch with TIMOTEO to discuss pts discharge plan.
--- NOTE | 2019-08-16 14:17 | NUR ---
FAMILY CONTACT: TIMOTEO received a call from pts cousin Kunal ([phone]) who states he is pts emergency contact and pts Trustee for pts special needs trust fund. He states that he was informed by [facility] that pt was psychiatrically hospitalized. TIMOTEO informed him that pt may need SNF placement and he agreed and states that he lives in [facility] and wishes for pt to be placed in a nice facility. TIMOTEO will update Kunal as needed to discuss placement.
[2019-08-16] MEDS ORDERED: LIDOCAINE 2% 20 ML MDV IJ ONE (14:30)
--- NOTE | 2019-08-16 15:31 | NUR ---
GROUP NOTE: SW encouraged the pt to participate in group therapy, however, pt is not appropriate at this time. Pt is easily agitated and paranoid with delusional thoughts. Pt stated to SW, "get out of here and work on my discharge."
[2019-08-16 16:00] VITALS: BP 118/69
[2019-08-16 20:00] VITALS: BP 141/76
[2019-08-16] MEDS: TEMAZEPAM 7.5 MG CAPSULE PO PRN (21:35)
--- NOTE | 2019-08-16 23:33 | NUR ---
GPS RN NOTES: PAIN PT C/O OF HEADACHE. PT REQUESTED TYLENOL. OFFERED TYLENOL 650 MG PO PRN ORDERED. PT AGREED AND TOLERATED MEDICATION WELL. CONTINUE TO MONITOR.
[2019-08-17 08:00] VITALS: BP 146/60
[2019-08-17] MEDS: NICOTINE PATCH (14MG) 14 MG PATCH.TD24 TD SCH ×2 (08:44→09:00)
[2019-08-17] MEDS: PANTOPRAZOLE 40 MG TABLET.DR PO SCH (08:45)
[2019-08-17] MEDS: FLUVOXAMINE MALEATE 50 MG TABLET PO SCH ×3 (08:45→17:05)
[2019-08-17] MEDS: CHOLECALCIFEROL 1,000 UNIT TABLET (VIT D3) PO SCH (08:45)
[2019-08-17] MEDS: BENZTROPINE MESYLATE (1 MG) 1 MG TABLET PO SCH ×3 (08:46→17:05)
[2019-08-17] MEDS: FUROSEMIDE 40 MG TABLET PO SCH (08:46)
[2019-08-17] MEDS: SENNOSIDES 8.6 MG TABLET PO SCH (08:46)
[2019-08-17] MEDS: HALOPERIDOL 5 MG TABLET PO SCH ×3 (08:46→17:05)
[2019-08-17] MEDS: LEVOTHYROXINE SODIUM 75 MCG TABLET PO SCH (08:50)
[2019-08-17] MEDS: MUPIROCIN OINT 2% 22 GM TUBE TP SCH (10:35)
--- NOTE | 2019-08-17 14:07 | NUR ---
SNF Referral: TIMOTEO faxed a referral to [facility] with attention to Michelle to the fax number: [phone].
--- NOTE | 2019-08-17 15:09 | NUR ---
Group Note: SW encouraged the pt to participate in group therapy on 08/17/19, however, pt is not appropriate at this time. Pt is easily agitated and paranoid with delusional thoughts. Pt stated that she wanted to be discharged back to her home and stated that the SW can speak to her mother who has actually been for a year. SW informed the pt that she is being referred to retirement facilities.
[2019-08-17] MEDS: LORAZEPAM 1 MG TABLET PO PRN (15:21)
--- NOTE | 2019-08-17 15:26 | NUR ---
MEDICATED FOR AGITATION WITH ATIVAN 1 MG PO.
[2019-08-17 16:00] VITALS: BP 153/100
[2019-08-17 19:39] VITALS: BP 111/50
[2019-08-18 07:55] LABS: CALCIUM, SERUM 8.9 mg/dL (8.5-10.1); CREATININE 0.9 mg/dL (0.6-1.3)
[2019-08-18 08:00] VITALS: BP 134/52
[2019-08-18] MEDS: FLUVOXAMINE MALEATE 50 MG TABLET PO SCH ×3 (08:15→17:00)
[2019-08-18] MEDS: SENNOSIDES 8.6 MG TABLET PO SCH (08:15)
[2019-08-18] MEDS: BENZTROPINE MESYLATE (1 MG) 1 MG TABLET PO SCH ×3 (08:15→17:00)
[2019-08-18] MEDS: PANTOPRAZOLE 40 MG TABLET.DR PO SCH (08:15)
[2019-08-18] MEDS: LEVOTHYROXINE SODIUM 75 MCG TABLET PO SCH (08:16)
[2019-08-18] MEDS: HALOPERIDOL 5 MG TABLET PO SCH ×3 (08:16→17:00)
[2019-08-18] MEDS: FUROSEMIDE 40 MG TABLET PO SCH (08:16)
[2019-08-18] MEDS: CHOLECALCIFEROL 1,000 UNIT TABLET (VIT D3) PO SCH (08:16)
[2019-08-18] MEDS: NICOTINE PATCH (14MG) 14 MG PATCH.TD24 TD SCH (08:21)
[2019-08-18] MEDS: MUPIROCIN OINT 2% 22 GM TUBE TP SCH (10:11)
--- NOTE | 2019-08-18 11:10 | NUR ---
SNF Referral: TIMOTEO faxed a referral to [facility] with attention to Ethel to the fax number: [phone].
--- NOTE | 2019-08-18 11:12 | NUR ---
[facility] Contact: Physicians Unit Secretary from [facility], Tai Campbell ([phone]), called the SW and stated that he wanted an update in how the pt is doing and that she will need to be placed elsewhere. SW stated that she is attempting to place the pt in a SNF and stated that she will inform him when she does.
--- NOTE | 2019-08-18 11:20 | NUR ---
Family Contact/Probable Cause (PC) Hearing: SW called the pts cousin Kunal ([phone]) and left a message stating that the pt has a hearing today and that the SW has sent out referrals but there is no accepting facility at this time.
--- NOTE | 2019-08-18 12:00 | NUR ---
Family Contact: Pts cousin, Kunal ([phone]), called the SW and the SW informed him about the results of the hearing. SW then discussed the pts discharge plan and informed him that she has sent referrals and is waiting to hear back. SW stated that she will inform him once she there is a discharge order.
--- NOTE | 2019-08-18 13:08 | NUR ---
Meds due for 1300 not given, pt. is too drowsy. Will continue to monitor.
--- NOTE | 2019-08-18 15:30 | NUR ---
Group Note: SW encouraged the pt to participate in group therapy on 08/18/19, however, pt is not appropriate at this time. Pt is easily agitated and paranoid with delusional thoughts. SW attempted to discuss the pts discharge plan with her and stated that she was going to be referred to SNFs and that her cousin was consulted but the pt became angry. Pt stated, "You cannot make me go. You cannot take away my freedom."
[2019-08-18 16:00] VITALS: BP 133/67
--- NOTE | 2019-08-18 17:39 | NUR ---
Dr. Lincoln notified that pt. is drowsy and ordered to hold Cogentin, Haldol and Luvox due for 1700.
[2019-08-18 20:00] VITALS: BP 131/63
[2019-08-19] MEDS: PANTOPRAZOLE 40 MG TABLET.DR PO SCH (07:57)
[2019-08-19] MEDS: LEVOTHYROXINE SODIUM 75 MCG TABLET PO SCH (07:57)
[2019-08-19 08:00] VITALS: BP 150/79
[2019-08-19] MEDS: MUPIROCIN OINT 2% 22 GM TUBE TP SCH (08:16)
[2019-08-19] MEDS: FUROSEMIDE 40 MG TABLET PO SCH (08:16)
[2019-08-19] MEDS: BENZTROPINE MESYLATE (1 MG) 1 MG TABLET PO SCH ×3 (08:16→17:43)
[2019-08-19] MEDS: FLUVOXAMINE MALEATE 50 MG TABLET PO SCH ×3 (08:16→17:43)
[2019-08-19] MEDS: SENNOSIDES 8.6 MG TABLET PO SCH (08:16)
[2019-08-19] MEDS: HALOPERIDOL 5 MG TABLET PO SCH ×3 (08:16→17:43)
[2019-08-19] MEDS: CHOLECALCIFEROL 1,000 UNIT TABLET (VIT D3) PO SCH (08:16)
[2019-08-19] MEDS: NICOTINE PATCH (14MG) 14 MG PATCH.TD24 TD SCH (08:20)
--- NOTE | 2019-08-19 09:00 | NUR ---
RN NOTE- PT OOB VISIBLE ON UNIT, CALM DIRECTABLE FLAT AFFECT FOCUSED ON COFFEE AND EXTRA STUFF FOR BREAKFAST. MED COMPLIANT CONFUSED DENIES ALL
[2019-08-19 16:00] VITALS: BP 141/77
[2019-08-19 21:10] VITALS: BP 143/97
[2019-08-20] MEDS: LEVOTHYROXINE SODIUM 75 MCG TABLET PO SCH (07:41)
[2019-08-20] MEDS: PANTOPRAZOLE 40 MG TABLET.DR PO SCH (07:41)
[2019-08-20 08:00] VITALS: BP 130/82
[2019-08-20] MEDS: HALOPERIDOL 5 MG TABLET PO SCH ×3 (08:04→16:37)
[2019-08-20] MEDS: FLUVOXAMINE MALEATE 50 MG TABLET PO SCH ×3 (08:04→16:37)
[2019-08-20] MEDS: SENNOSIDES 8.6 MG TABLET PO SCH (08:04)
[2019-08-20] MEDS: CHOLECALCIFEROL 1,000 UNIT TABLET (VIT D3) PO SCH (08:05)
[2019-08-20] MEDS: BENZTROPINE MESYLATE (1 MG) 1 MG TABLET PO SCH ×3 (08:05→16:37)
[2019-08-20] MEDS: FUROSEMIDE 40 MG TABLET PO SCH (08:06)
[2019-08-20] MEDS: NICOTINE PATCH (14MG) 14 MG PATCH.TD24 TD SCH (08:06)
[2019-08-20] MEDS: MUPIROCIN OINT 2% 22 GM TUBE TP SCH (09:24)
--- NOTE | 2019-08-20 15:29 | NUR ---
RN NOTE: PT'S CONDITION DISCUSSED WITH DR. LEBLANC. ORDER FOR PSYCHOTROPIC MEDICATIONS TO BE HELD FOR SEDATION. DR. ELDER NOTIFIED OF CHANGE IN CONDITION. AWAITING NEW ORDERS
[2019-08-20 16:00] VITALS: BP 117/95
--- NOTE | 2019-08-20 16:38 | NUR ---
RN NOTE: PT'S 1700 MEDICATIONS HELD DUE TO SEDATION
[2019-08-20] MEDS: LORAZEPAM 1 MG TABLET PO PRN (20:37)
--- NOTE | 2019-08-20 20:37 | NUR ---
GPS RN NOTE: ANXIETY PT. APPEARS ANXIOUS. ADMINISTERED ATIVAN 1 MG PO PRN ORDERED AND ZO. WELL. WILL CONTINUE TO MONITOR FOR SAFETY AND BEHAVIOR
[2019-08-20 20:39] VITALS: BP 151/75
[2019-08-20] MEDS: TEMAZEPAM 7.5 MG CAPSULE PO PRN (22:46)
--- NOTE | 2019-08-20 22:46 | NUR ---
GPS RN NOTE: INSOMNIA PT. UNABLE TO SLEEP. ADMINISTERED RESTORIL 7.5 MG PO PRN ORDERED. WILL CONTINUE TO MONITOR FOR SAFETY AND BEHAVIOR.
[2019-08-21 08:00] VITALS: BP 118/67
[2019-08-21] MEDS: FUROSEMIDE 40 MG TABLET PO SCH (08:17)
[2019-08-21] MEDS: NICOTINE PATCH (14MG) 14 MG PATCH.TD24 TD SCH (08:17)
[2019-08-21] MEDS: PANTOPRAZOLE 40 MG TABLET.DR PO SCH (08:17)
[2019-08-21] MEDS: CHOLECALCIFEROL 1,000 UNIT TABLET (VIT D3) PO SCH (08:17)
[2019-08-21] MEDS: SENNOSIDES 8.6 MG TABLET PO SCH (08:18)
[2019-08-21] MEDS: LEVOTHYROXINE SODIUM 75 MCG TABLET PO SCH (08:18)
[2019-08-21] MEDS: FLUVOXAMINE MALEATE 50 MG TABLET PO SCH ×3 (08:19→17:24)
[2019-08-21] MEDS: HALOPERIDOL 5 MG TABLET PO SCH ×3 (08:19→17:24)
[2019-08-21] MEDS: BENZTROPINE MESYLATE (1 MG) 1 MG TABLET PO SCH ×3 (08:19→17:24)
[2019-08-21] MEDS: MUPIROCIN OINT 2% 22 GM TUBE TP SCH (09:10)
--- NOTE | 2019-08-21 11:18 | NUR ---
RN-CO: DR LEBLANC MADE AWARE THAT PATIENT LOOKS MORE CONFUSED TODAY THAN LAST WEEK. SHE NEEDS MORE ASSISTANCE IN [place]. DR LEBLANC ORDER TO NOTIFY DR ELDER AND SUGGEST TO ORDER UA.
--- NOTE | 2019-08-21 12:07 | NUR ---
RN NOTE: 1300 PSYCHIATRIC MEDICATIONS HELD DUE TO SEDATION
--- NOTE | 2019-08-21 12:08 | NUR ---
RN NOTE: URINE COLLECTED FOR UA
[2019-08-21 14:35] LABS: APPEARANCE,URINE CLEAR (CLEAR); BILIRUBIN,URINE NEGATIVE (NEGATIVE); BLOOD, URINE LARGE Ery/uL (NEGATIVE); COLOR,URINE YELLOW (YELLOW); KETONES,URINE NEGATIVE (NEGATIVE); LEUKOCYTE ESTERASE ,URINE LARGE (NEGATIVE); NITRITE, URINE NEGATIVE (NEGATIVE); PH,URINE 6.5 (5.0-8.0); PROTEIN,URINE TRACE mg/dl (NEGATIVE); UGLUCOSE NEGATIVE (NEGATIVE); UROBILINOGEN,URINE 0.2 EU/dL (0.2)
[2019-08-21 15:04] LABS: BACTERIA,URINE 3+ /HPF (None Seen); RBC,URINE 21-50 /HPF (0-2); SQUAMOUS EPITHELIAL CELL,UR 0-2 /HPF (None Seen); WBC,URINE 51-80 /HPF (0-3)
--- NOTE | 2019-08-21 15:16 | NUR ---
RN-CO: NOTIFIED DR ELDER REGARDING THE RESULT OF MD DEBBY ORDERED KEFLEX 250 MG PO TID NOTED.
[2019-08-21 16:00] VITALS: BP 129/60
[2019-08-21] MEDS: CEPHALEXIN MONOHYDRATE 250 MG CAPSULE PO SCH (17:32)
[2019-08-21 19:47] VITALS: BP 134/66
[2019-08-21] MEDS: TEMAZEPAM 7.5 MG CAPSULE PO PRN (21:59)
[2019-08-22] MEDS: LORAZEPAM 1 MG TABLET PO PRN (01:08)
[2019-08-22] MEDS: LEVOTHYROXINE SODIUM 75 MCG TABLET PO SCH (07:41)
[2019-08-22] MEDS: PANTOPRAZOLE 40 MG TABLET.DR PO SCH (07:41)
[2019-08-22 08:00] VITALS: BP 122/66
[2019-08-22] MEDS: FLUVOXAMINE MALEATE 50 MG TABLET PO SCH ×3 (08:32→17:21)
[2019-08-22] MEDS: HALOPERIDOL 5 MG TABLET PO SCH ×3 (08:32→17:21)
[2019-08-22] MEDS: BENZTROPINE MESYLATE (1 MG) 1 MG TABLET PO SCH ×3 (08:33→17:21)
[2019-08-22] MEDS: CEPHALEXIN MONOHYDRATE 250 MG CAPSULE PO SCH ×3 (08:33→17:21)
[2019-08-22] MEDS: FUROSEMIDE 40 MG TABLET PO SCH (08:33)
[2019-08-22] MEDS: SENNOSIDES 8.6 MG TABLET PO SCH (08:33)
[2019-08-22] MEDS: CHOLECALCIFEROL 1,000 UNIT TABLET (VIT D3) PO SCH (08:33)
[2019-08-22] MEDS: NICOTINE PATCH (14MG) 14 MG PATCH.TD24 TD SCH (08:44)
--- NOTE | 2019-08-22 09:00 | NUR ---
RN NOTE- PT ALERT THOUGH SLOW TO RESPOND TO QUERY. CONFUSED FOLLOWS DIRECTIONS ORIENTED TO SELF ONLY MED COMPLIANT PO INTAKE FAIR W ASSIST
--- NOTE | 2019-08-22 10:05 | NUR ---
SNF Contact: SW contacted Willie ([phone]), Ship Construction Teacher for [facility], who stated that [facility] admissions has been closed and cannot accept this pt.
--- NOTE | 2019-08-22 10:15 | NUR ---
SNF Referral: TIMOTEO faxed a referral to [facility] with attention to ALEYDA and Willie to the fax number: [phone].
--- NOTE | 2019-08-22 10:26 | NUR ---
SNF Referral: TIMOTEO faxed a referral to [facility] with attention to Rafaela to the fax number: [phone].
[2019-08-22] MEDS: MUPIROCIN OINT 2% 22 GM TUBE TP SCH (10:56)
--- NOTE | 2019-08-22 12:37 | NUR ---
Family Contact: Pts cousin, Kunal ([phone]), called the SW and stated that he would like the pt to be referred to [facility]. SW informed him that these placements require funds and that she will attempt to place her. SW stated that she will keep him updated.
--- NOTE | 2019-08-22 12:58 | NUR ---
Assisted Living Referral: TIMOTEO faxed a referral to [facility] with attention to Admissions to the fax number: [phone].
[2019-08-22 16:00] VITALS: BP 132/76
--- NOTE | 2019-08-22 16:19 | NUR ---
Group Note: SW encouraged the pt to participate in group therapy on 08/22/19, however, pt is not appropriate at this time. Pt is easily agitated and paranoid with delusional thoughts. SW attempted to discuss the pts discharge plan with her and stated that she was going to be referred to SNFs and that her cousin was consulted but the pt became angry. SW stated that she spoke to the pts cousin and that he wants the pt to be in an Assisted Living. Pt did not appear to understand.
--- NOTE | 2019-08-22 16:43 | NUR ---
RN NOTE- PT W NOTED PITTING EDEMA BILATERAL LOWER EXTREMITIES +2. ON LASIX 40 MG. WILL NOTIFY MD
--- NOTE | 2019-08-22 17:00 | NUR ---
RN NOTE- SONYA ELDER CLIENT ACCOUNT SPECIALIST ORDERED BUMEX 2 MG Q4 X THREE DOSES FOR EDEMA BILATERAL LOWER EXTREMITIES . COMPLIED
[2019-08-22 20:20] VITALS: BP 125/58
[2019-08-22] MEDS: RIVASTIGMINE TARTRATE 1.5 MG CAPSULE PO SCH (20:59)
[2019-08-22] MEDS: BUMETANIDE (1 MG) 1 MG TABLET PO SCH (20:59)
[2019-08-23] MEDS: BUMETANIDE (1 MG) 1 MG TABLET PO SCH ×2 (00:39→04:09)
[2019-08-23] MEDS: TEMAZEPAM 7.5 MG CAPSULE PO PRN (01:28)
--- NOTE | 2019-08-23 01:31 | NUR ---
GPS RN NOTES: INSOMNIA PT AWAKE AND GETTING OUT OF BED. OFFERED RESTORIL 7.5 MG PO PRN ORDERED. PT AGREED AND TOLERATED MEDICATION. CONT TO MONITOR.
--- NOTE | 2019-08-23 02:21 | NUR ---
GPS RN NOTES: UPON DOING ROUNDS PT AWAKE TRYING TO GET OUT OF BED. ENCOURAGE PT TO EXPRESS THOUGHT AND FEELINGS TO STAFF. PT CURSING AND YELLING AT STAFF. PLACED PT IN RICKY CHAIR NEXT TO DAY ROOM WITH STAFF MEMBER MONITORING PT. PT CONTINUE TO SARCASTICALLY CURSING AT STAFF CONTINUE TO MONITOR BEHAVIOR.
[2019-08-23 08:00] VITALS: BP 109/69
[2019-08-23] MEDS: CHOLECALCIFEROL 1,000 UNIT TABLET (VIT D3) PO SCH (08:54)
[2019-08-23] MEDS: RIVASTIGMINE TARTRATE 1.5 MG CAPSULE PO SCH ×2 (08:55→20:30)
[2019-08-23] MEDS: SENNOSIDES 8.6 MG TABLET PO SCH (08:55)
[2019-08-23] MEDS: NICOTINE PATCH (14MG) 14 MG PATCH.TD24 TD SCH (08:55)
[2019-08-23] MEDS: FUROSEMIDE 40 MG TABLET PO SCH (08:55)
[2019-08-23] MEDS: CEPHALEXIN MONOHYDRATE 250 MG CAPSULE PO SCH ×3 (08:55→16:32)
[2019-08-23] MEDS: PANTOPRAZOLE 40 MG TABLET.DR PO SCH (08:56)
[2019-08-23] MEDS: LEVOTHYROXINE SODIUM 75 MCG TABLET PO SCH (08:56)
[2019-08-23] MEDS: FLUVOXAMINE MALEATE 50 MG TABLET PO SCH ×3 (08:56→16:30)
[2019-08-23] MEDS: HALOPERIDOL 5 MG TABLET PO SCH ×3 (08:56→16:33)
[2019-08-23] MEDS: BENZTROPINE MESYLATE (1 MG) 1 MG TABLET PO SCH ×3 (08:56→16:30)
[2019-08-23] MEDS: MUPIROCIN OINT 2% 22 GM TUBE TP SCH (09:15)
--- NOTE | 2019-08-23 14:50 | NUR ---
SNF Referral: SW faxed a referral to the following two facilities: [facility] with attn to Admissions to the fax number: [phone] [facility] with attn to Admissions to the fax number: [phone].
[2019-08-23 16:00] VITALS: BP 114/74
[2019-08-23 20:00] VITALS: BP 121/71
[2019-08-24] MEDS: TEMAZEPAM 7.5 MG CAPSULE PO PRN (01:41)
--- NOTE | 2019-08-24 01:43 | NUR ---
GPS RN NOTES: INSOMNIA PT AWAKE AND GETTING OUT OF BED. OFFERED RESTORIL 7.5 MG PO PRN ORDERED. PT AGREED AND TOLERATED MEDICATION. CONT TO MONITOR.
--- NOTE | 2019-08-24 02:10 | NUR ---
GPS RN NOTES: UPON DOING ROUNDS PT AWAKE TRYING TO GET OUT OF BED. ENCOURAGE PT TO EXPRESS THOUGHT AND FEELINGS TO STAFF. PT CURSING AT STAFF AND CONTINUE TO GET OUT OF BED. EDUCATED PT ABOUT FALL SAFETY. PT WAKING UP ROOMMATE AND BANGING ON THE BED. PLACED PT IN RICKY CHAIR NEXT TO DAY ROOM WITH STAFF MEMBER MONITORING PT. CONTINUE TO MONITOR BEHAVIOR AND SAFETY.
[2019-08-24 08:00] VITALS: BP 108/56
[2019-08-24] MEDS: CHOLECALCIFEROL 1,000 UNIT TABLET (VIT D3) PO SCH (08:28)
[2019-08-24] MEDS: NICOTINE PATCH (14MG) 14 MG PATCH.TD24 TD SCH (08:28)
[2019-08-24] MEDS: PANTOPRAZOLE 40 MG TABLET.DR PO SCH (08:28)
[2019-08-24] MEDS: BENZTROPINE MESYLATE (1 MG) 1 MG TABLET PO SCH ×3 (08:29→16:13)
[2019-08-24] MEDS: LEVOTHYROXINE SODIUM 75 MCG TABLET PO SCH (08:29)
[2019-08-24] MEDS: SENNOSIDES 8.6 MG TABLET PO SCH (08:29)
[2019-08-24] MEDS: FUROSEMIDE 40 MG TABLET PO SCH (08:29)
[2019-08-24] MEDS: FLUVOXAMINE MALEATE 50 MG TABLET PO SCH ×3 (08:29→16:13)
[2019-08-24] MEDS: HALOPERIDOL 5 MG TABLET PO SCH ×3 (08:29→16:13)
[2019-08-24] MEDS: CEPHALEXIN MONOHYDRATE 250 MG CAPSULE PO SCH ×3 (08:33→16:13)
[2019-08-24] MEDS: RIVASTIGMINE TARTRATE 1.5 MG CAPSULE PO SCH ×3 (08:39→21:19)
--- NOTE | 2019-08-24 08:41 | NUR ---
SNF Referral: TIMOTEO faxed a referral to [facility] with attention to Yla to the fax number: [phone].
[2019-08-24] MEDS: MUPIROCIN OINT 2% 22 GM TUBE TP SCH (10:35)
--- NOTE | 2019-08-24 13:26 | NUR ---
SNF Contact: Ron ([phone]) from [facility] called the SW and stated that the pt was accepted to their facility upon COVID clearance.
--- NOTE | 2019-08-24 13:27 | NUR ---
Family Contact: TIMOTEO called the pts cousin, Kunal ([phone]), and informed him that the pt is going to be discharged the following day to [facility] the following day.
--- NOTE | 2019-08-24 14:22 | NUR ---
Group Note: SW encouraged the pt to participate in group therapy on 08/24/19, however, pt is not appropriate at this time. Pt is easily agitated and paranoid with delusional thoughts. SW attempted to discuss the pts discharge plan with her and stated that she was going to be discharged to a SNF tomorrow. Pt did not seem to understand.
[2019-08-24 16:00] VITALS: BP 122/57
[2019-08-24 20:09] VITALS: BP 120/64
--- NOTE | 2019-08-24 20:35 | NUR ---
GPS RN NOTES: SLEEP NON ADMINISTER EXELON 1.5 MG PO DUE TO PT ASLEEP. WOKE UP PT. PT OPEN HER EYES AND PT BACK TO SLEEP. EXPLAIN RISKS AND BENEFITS. PT STILL ASLEEP AND REFUSED X3. CONTINUE TO MONITOR.
--- NOTE | 2019-08-24 21:25 | NUR ---
GPS RN NOTES: PT AWAKE. ADMINISTER EXELON 1.5 MG PO DUE. PT TOLERATED MED WELL. CONTINUE TO MONITOR.
[2019-08-25 08:00] VITALS: BP 135/62
[2019-08-25] MEDS: CHOLECALCIFEROL 1,000 UNIT TABLET (VIT D3) PO SCH (08:53)
[2019-08-25] MEDS: PANTOPRAZOLE 40 MG TABLET.DR PO SCH (08:54)
[2019-08-25] MEDS: FUROSEMIDE 40 MG TABLET PO SCH (08:55)
[2019-08-25] MEDS: RIVASTIGMINE TARTRATE 1.5 MG CAPSULE PO SCH (08:55)
[2019-08-25] MEDS: FLUVOXAMINE MALEATE 50 MG TABLET PO SCH ×2 (08:56→13:12)
[2019-08-25] MEDS: LEVOTHYROXINE SODIUM 75 MCG TABLET PO SCH (08:56)
[2019-08-25] MEDS: BENZTROPINE MESYLATE (1 MG) 1 MG TABLET PO SCH ×2 (08:57→13:12)
[2019-08-25] MEDS: CEPHALEXIN MONOHYDRATE 250 MG CAPSULE PO SCH ×2 (08:57→13:12)
[2019-08-25] MEDS: HALOPERIDOL 5 MG TABLET PO SCH ×2 (08:57→13:12)
[2019-08-25] MEDS: NICOTINE PATCH (14MG) 14 MG PATCH.TD24 TD SCH (08:58)
[2019-08-25] MEDS: SENNOSIDES 8.6 MG TABLET PO SCH (09:03)
[2019-08-25] MEDS: MUPIROCIN OINT 2% 22 GM TUBE TP SCH (09:10)
--- NOTE | 2019-08-25 09:18 | NUR ---
Dr. Lincoln gave an order to D/C hold and D/C to [facility] and to follow up with the psychiatrist Dr. Velasquez at [address] [facility], [place] [address] with the tel# of [phone] and to follow up with the wastewater treatment operator Dr. Washington at [address] [address] and with the tel. # of [phone]. Psychiatrist gave an order to continue same meds including prn.
--- NOTE | 2019-08-25 10:32 | NUR ---
Tarsha (DAVID) made aware of the discharge and reconciled the meds. Addendum: 08/25/19 at 1436 by JESSIE MATHEWS RN Pt. without distress, denies suicidal and homicidal.
--- NOTE | 2019-08-25 13:41 | NUR ---
Discharge Note: Pt was discharged to [facility] located at [address] [place] [address] . Pt was transported via [facility] at 2PM. Pts cousin, Kunal ([phone]), was informed. Upon discharge, the pt appeared to be in a depressed mood and presented with a distressed affect. Pt appeared to be oriented x2 (place and self). Pt appears to be well groomed and appropriately dressed. Pt is ambulatory and appears to have fair physical health. Pt denied visual/auditory hallucinations and denied suicidal/homicidal ideation. Pt will be under the care of psychiatrist, Dr. Velasquez, located at [address] [place] [address]; and systems security consultant, Dr Washington, located at [address] [address]; .
[2019-08-25] MEDS: LORAZEPAM 1 MG TABLET PO PRN (14:30)
--- NOTE | 2019-08-25 14:31 | NUR ---
rn notes administered Ativan 1 mg po prn for anxiety at this time, before discharge SNF, bp 113/56, p-95, continued monitoring.
--- NOTE | 2019-08-25 14:33 | NUR ---
RUBBER GOODS ASSEMBLER NOTES PATIENT DISCHARGE AT THIS TIME GOING ANF. PATIENT A/O X3, NO ACUTE RESPIRATORY DISTRESS, V/S STABLE, REFUSED PAIN. PATIENT DENIED SI/HI /AVH AT THIS TIME. MED RECONCILIATION AND DISCHARGE ORDER REVIEWED AND EXPLAINED TO PATIENT. REPORT GIVEN SNF RN KATERINA. RN VERBALIZED UNDERSTANDING. BELONGING RETURNED BACK TO THE PATIENT. PICTURE TAKEN , PATIENT SIGN PAPERWORK. PATIENT WILL FOLLOW SNF INSOLE TACKER, AND PSYCHIATRIST. PATIENT CELL BIOLOGIST BY AMBULANCE.
[2019-08-28] MEDS ORDERED: CEPHALEXIN MONOHYDRATE 250 MG CAPSULE PO SCH (17:00)
== END 2019-08-25 14:35 | DRG 885 ==
LOC: GPS 20:00
PROVIDERS: ADMIT Psychiatry & Neurology Psychiatry; ATTEND Registered Nurse
DX: F25.9 Schizoaffective disorder, unspecified (principal); B18.2 Chronic viral hepatitis C; D61.818 Other pancytopenia; J90 Pleural effusion, not elsewhere classified; N39.0 Urinary tract infection, site not specified; D69.3 Immune thrombocytopenic purpura; I48.91 Unspecified atrial fibrillation; B35.1 Tinea unguium; E03.9 Hypothyroidism, unspecified; E78.5 Hyperlipidemia, unspecified; I27.20 Pulmonary hypertension, unspecified; K80.20 Calculus of gallbladder without cholecystitis without obstruction; Z91.14 Patient's other noncompliance with medication regimen; Z91.5 Personal history of self-harm; Z73.6 Limitation of activities due to disability; R42 Dizziness and giddiness; K72.90 Hepatic failure, unspecified without coma; K74.60 Unspecified cirrhosis of liver; G25.0 Essential tremor; F29 Unspecified psychosis not due to a substance or known physiological condition
CPT/HCPCS: 36415; 80048-TC; 80053-TC; 80061-TC; 81000-TC; 82247-TC; 82248-TC; 83735-TC; 84100-TC; 84439-TC; 84443-TC; 85025-TC; 87081-TC; 87086-TC; 97116-TC; 97530-TC; J3490; U0003-CS